=== PATIENT | male | born 1965 | race Caucasian/White ===

== ENCOUNTER → 2019-10-13 12:32 | Outpatient (BNVA) | payer MEDICAID, SELFPAY | PROVIDERS: Family Provider Nurse Practitioner; PCP Nurse Practitioner; Visit Provider Nurse Practitioner Psychiatric/Mental Health | DX: F31.12 Bipolar disorder, current episode manic without psychotic features, moderate (principal); F43.12 Post-traumatic stress disorder, chronic; F41.1 Generalized anxiety disorder; F60.81 Narcissistic personality disorder | CPT/HCPCS: 99213 ==

== ENCOUNTER → 2019-12-10 08:22 | Outpatient (BNVA) | payer MEDICAID, SELFPAY | PROVIDERS: Family Provider Nurse Practitioner; PCP Nurse Practitioner; Visit Provider Nurse Practitioner Psychiatric/Mental Health | DX: F31.12 Bipolar disorder, current episode manic without psychotic features, moderate (principal); F43.12 Post-traumatic stress disorder, chronic; F41.1 Generalized anxiety disorder; F60.81 Narcissistic personality disorder | CPT/HCPCS: 99213 ==

== ENCOUNTER → 2020-01-07 08:30 | Outpatient (BNVA) | payer MEDICAID, SELFPAY | PROVIDERS: Family Provider Nurse Practitioner; Visit Provider Nurse Practitioner Psychiatric/Mental Health | DX: F31.12 Bipolar disorder, current episode manic without psychotic features, moderate (principal); F43.12 Post-traumatic stress disorder, chronic; F41.1 Generalized anxiety disorder; F60.81 Narcissistic personality disorder | CPT/HCPCS: 99214 ==

== ENCOUNTER → 2020-02-05 08:04 | Outpatient (BNVA) | payer MEDICAID, SELFPAY | PROVIDERS: Family Provider Nurse Practitioner; Visit Provider Nurse Practitioner Psychiatric/Mental Health | DX: F31.12 Bipolar disorder, current episode manic without psychotic features, moderate (principal); F43.12 Post-traumatic stress disorder, chronic; F41.1 Generalized anxiety disorder; F60.81 Narcissistic personality disorder | CPT/HCPCS: 99214 ==

== ENCOUNTER → 2020-03-11 07:46 | Outpatient (BNVA) | payer MEDICAID, SELFPAY | PROVIDERS: Family Provider Nurse Practitioner; Visit Provider Nurse Practitioner Psychiatric/Mental Health | DX: F31.12 Bipolar disorder, current episode manic without psychotic features, moderate (principal); F43.12 Post-traumatic stress disorder, chronic; F41.1 Generalized anxiety disorder; F60.81 Narcissistic personality disorder | CPT/HCPCS: 99214 ==

== ENCOUNTER → 2020-04-13 09:53 | Outpatient (BNVA) | payer MEDICAID, SELFPAY | PROVIDERS: Family Provider Nurse Practitioner; Visit Provider Nurse Practitioner Psychiatric/Mental Health | DX: F31.12 Bipolar disorder, current episode manic without psychotic features, moderate (principal); F43.12 Post-traumatic stress disorder, chronic; F41.1 Generalized anxiety disorder; F60.81 Narcissistic personality disorder | CPT/HCPCS: 99214 ==

== ENCOUNTER → 2020-05-13 08:20 | Outpatient (BNVA) | payer MEDICAID, SELFPAY | PROVIDERS: Family Provider Nurse Practitioner; Visit Provider Nurse Practitioner Psychiatric/Mental Health | DX: F31.12 Bipolar disorder, current episode manic without psychotic features, moderate (principal); F43.12 Post-traumatic stress disorder, chronic; F41.1 Generalized anxiety disorder; F60.81 Narcissistic personality disorder | CPT/HCPCS: 99214 ==

== ENCOUNTER → 2020-06-10 08:19 | Outpatient (BNVA) | payer MEDICAID, SELFPAY | PROVIDERS: Family Provider Nurse Practitioner; Visit Provider Nurse Practitioner Psychiatric/Mental Health | DX: F31.12 Bipolar disorder, current episode manic without psychotic features, moderate (principal); F43.12 Post-traumatic stress disorder, chronic; F41.1 Generalized anxiety disorder; F60.81 Narcissistic personality disorder | CPT/HCPCS: 99213 ==

== ENCOUNTER → 2020-07-15 07:57 | Outpatient (BNVA) | payer MEDICAID, SELFPAY | PROVIDERS: Family Provider Nurse Practitioner; Visit Provider Nurse Practitioner Psychiatric/Mental Health | DX: F31.12 Bipolar disorder, current episode manic without psychotic features, moderate (principal); F43.12 Post-traumatic stress disorder, chronic; F41.1 Generalized anxiety disorder; F60.81 Narcissistic personality disorder | CPT/HCPCS: 99213 ==

== ENCOUNTER → 2020-08-09 09:27 | Outpatient (BNVA) | payer MEDICAID, SELFPAY | PROVIDERS: Family Provider Nurse Practitioner; Visit Provider Nurse Practitioner Psychiatric/Mental Health | DX: F31.12 Bipolar disorder, current episode manic without psychotic features, moderate (principal); F43.12 Post-traumatic stress disorder, chronic; F41.1 Generalized anxiety disorder; F60.81 Narcissistic personality disorder | CPT/HCPCS: 99213 ==

== ENCOUNTER → 2020-09-20 08:43 | Outpatient (BNVA) | payer MEDICAID, SELFPAY | PROVIDERS: Family Provider Nurse Practitioner; Visit Provider Nurse Practitioner Psychiatric/Mental Health | DX: F31.12 Bipolar disorder, current episode manic without psychotic features, moderate (principal); F43.12 Post-traumatic stress disorder, chronic; F41.1 Generalized anxiety disorder; F60.81 Narcissistic personality disorder | CPT/HCPCS: 99214 ==

== ENCOUNTER → 2020-10-18 08:00 | Outpatient (BNVA) | payer MEDICAID, SELFPAY | PROVIDERS: Family Provider Nurse Practitioner; Visit Provider Nurse Practitioner Psychiatric/Mental Health | DX: F31.12 Bipolar disorder, current episode manic without psychotic features, moderate (principal); F43.12 Post-traumatic stress disorder, chronic; F41.1 Generalized anxiety disorder; F60.81 Narcissistic personality disorder | CPT/HCPCS: 99214 ==

== ENCOUNTER → 2020-11-23 08:06 | Outpatient (BNVA) | payer MEDICAID, SELFPAY | PROVIDERS: Family Provider Nurse Practitioner; Visit Provider Nurse Practitioner Psychiatric/Mental Health | DX: F31.12 Bipolar disorder, current episode manic without psychotic features, moderate (principal); F43.12 Post-traumatic stress disorder, chronic; F41.1 Generalized anxiety disorder; F60.81 Narcissistic personality disorder | CPT/HCPCS: 99214 ==

== ENCOUNTER → 2020-12-19 08:35 | Outpatient (BNVA) | payer MEDICAID, SELFPAY | PROVIDERS: Family Provider Nurse Practitioner; Visit Provider Nurse Practitioner Psychiatric/Mental Health | DX: F31.12 Bipolar disorder, current episode manic without psychotic features, moderate (principal); F43.12 Post-traumatic stress disorder, chronic; F41.1 Generalized anxiety disorder; F60.81 Narcissistic personality disorder | CPT/HCPCS: 99214 ==

== ENCOUNTER → 2021-01-17 08:34 | Outpatient (BNVA) | payer MEDICAID, SELFPAY | PROVIDERS: Family Provider Nurse Practitioner; Visit Provider Nurse Practitioner Psychiatric/Mental Health | DX: F31.12 Bipolar disorder, current episode manic without psychotic features, moderate (principal); F43.12 Post-traumatic stress disorder, chronic; F41.1 Generalized anxiety disorder; F60.81 Narcissistic personality disorder | CPT/HCPCS: 99214 ==

== ENCOUNTER → 2021-02-14 08:21 | Outpatient (BNVA) | payer MEDICAID, SELFPAY | PROVIDERS: Family Provider Nurse Practitioner; Visit Provider Nurse Practitioner Psychiatric/Mental Health | DX: F31.12 Bipolar disorder, current episode manic without psychotic features, moderate (principal); F43.12 Post-traumatic stress disorder, chronic; F41.1 Generalized anxiety disorder; F60.81 Narcissistic personality disorder | CPT/HCPCS: 99214 ==

== ENCOUNTER 2021-02-21 10:29 | Inpatient (IN) | payer MEDICAID, SELFPAY ==
[2021-02-21] VITALS (17 sets, daily range): BP systolic 91–132; BP diastolic 54–83; PULSE 49–75; RESP 13–26; TEMP 36.5–36.8; O2SAT 89–95; BMI 26.6
--- NOTE | 2021-02-21 10:36 | ECG_ITS ---
[facility] Test Date: 2021-02-21 Pat Name: Hero Gardner Department: Room: Gender: Male First Aid Attendant: : 1965 Requested By: Jackie Monteiro Order Number: [id number] Cristina MD: Mily Sandhu M.D. Measurements Intervals [place] Rate: 65 P: 42 DE: 149 QRS: -10 QRSD: 99 T: 11 QT: 427 QTc: 445 Interpretive Statements SINUS RHYTHM INCOMPLETE RIGHT BUNDLE BRANCH BLOCK [90+ ms QRS DURATION, TERMINAL R IN V1/V2, 40+ ms S IN I/aVL/V4/V5/V6] PROBABLE SEPTAL MYOCARDIAL INFARCTION [35 ms Q WAVE IN V1/V2], PROBABLY OLD No previous ECG available for comparison Electronically Signed On 02-22-2021 0:23:38 CDT by Mily Sandhu M.D. [email or web address]
--- NOTE | 2021-02-21 10:36 | XRR_ITS ---
PROCEDURE INFORMATION: Exam: XR Chest Exam date and time: 02/21/2021 10:36 AM Age: 55 years old Clinical indication: Pain; Shortness of breath; Angina pectoris; Prior surgery; Surgery type: Open heart; Additional info: Chest pain TECHNIQUE: Imaging protocol: XR of the chest. Views: 1 view. COMPARISON: CT chest con [id number] 11/08/2018 2:38 PM FINDINGS: Lungs: Unremarkable. No consolidation. Pleural spaces: Unremarkable. No pleural effusion. No pneumothorax. Heart/Mediastinum: The patient has undergone coronary bypass surgery. The heart is not enlarged. Bones/joints: Unremarkable. XR/XR chest 1V portable [id number] IMPRESSION: No acute cardiopulmonary abnormality.
[2021-02-21 11:04] LABS: Basophils # 0.1 10^3/uL (0.0-0.1); Basophils % 0.7 %; Eosinophils # 0.7 10^3/uL (0.0-0.8); Eosinophils % 6.5 %; Hematocrit 46.5 % (42.0-52.0); Lymphocytes # 2.9 10^3/uL (0.8-4.8); Lymphocytes % 28.4 %; Mean Corpuscular HGB Conc 32.3 g/dL (30.0-36.0); Mean Corpuscular Hemoglobin 28.2 pg (28.0-34.0); Mean Corpuscular Volume 87.6 fL (80-94); Mean Platelet Volume 9.9 fL (7.4-10.4); Monocytes # 0.7 10^3/uL (0.2-0.9); Monocytes % 7.1 %; Neutrophils # 5.82 10^3/uL (1.8-7.7); Nucleated Red Blood Cells % 0 %; Platelet Count 327 10^3/cmm (130-400); Red Blood Count 5.31 10^6/uL (4.1-5.3); Red Cell Distribution Width 12.8 % (12.1-15.1); White Blood Count 10.2 10^3/uL (4.0-10.0)
--- NOTE | 2021-02-21 11:33 | W.ED.CHESTPA ---
HPI - Chest Pain General: Chief Complaint: Chest Pain Stated Complaint: chest pain Time Seen by Provider: 02/21/21 10:52 History of Present Illness: HPI narrative: 55-year-old male presents emergency room complaining of worsening chest pain with radiation down his left arm and up into his neck. It is associated with exertion in fact he intentionally gave himself a stress test at home by going up and down the stairs which elicited the pain and then it resolved after 5 to 10 minutes. He is not on any antiplatelet therapy. He has a known history of coronary disease with previous angiography with stenting subsequent in-stent stenosis and coronary artery bypass. He has not had any kind of evaluation approximately last 5 years. He is not on any statin therapy. He is is a remote history of smoking he is not diabetic. 1 aspect of his history is a little bit more perplexing in that he reports at times he will get the chest pain at rest he will start to do squats and then push-ups with the idea that he is exercising the lower and then the upper portion of his heart after he ceases the exercise and 5 to 10 minutes the chest pain will go away. His episodes recently have been increasing in intensity and frequency. 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 Onset (ago): day(s) (3) Timing of current episode: episodic and increasing Prior episodes: Yes Onset: during rest and during exertion Pain location: left chest Pain radiation: left arm and neck Severity: moderate Relieving factors: rest Exacerbating factors: exertion Associated symptoms: Reports dyspnea; Deny abdominal pain, diaphoresis, fever(s), leg edema, nausea, palpitations, sense of impending doom, syncope or vomiting Treatment prior to arrival: none Review of Systems Const: Denies: fever(s) or diaphoresis ENMT: Denies: throat pain, ear or mastoid pain, nasal discharge or nasal congestion Card: Denies: palpitations or syncope Resp: Reports: dyspnea GI: Denies: abdominal pain, nausea or vomiting : Denies: flank pain, dysuria, urinary frequency or urinary urgency Skin/Breast: Denies: rash or pruritus PFS ED PFSH: Medical History Bipolar I disorder, moderate, current or most recent episode manic, with anxious distress CAD (coronary artery disease) Chronic post-traumatic stress disorder Generalized anxiety disorder Surgical History S/P CABG (coronary artery bypass graft) Social History Smoking and tobacco status: former smoker Physical Exam Const: COMMON NORMALS: no acute distress GENERAL APPEARANCE: cooperative and comfortable ORIENTATION/CONSCIOUSNESS: Yes awake, Yes oriented to person, Yes oriented to place and Yes oriented to time HENMT: COMMON NORMALS: normocephalic, atraumatic, hearing grossly normal bilaterally and external ears normal HEAD & SCALP: normocephalic and atraumatic EXTERNAL EAR: Yes external ears normal Neck/C-Spine: COMMON NORMALS: no JVD Resp: COMMON NORMALS: normal respiratory effort, No retractions, No use of accessory muscles and clear to auscultation bilaterally AUSCULTATION: clear to auscultation bilaterally Cardio: COMMON NORMALS: no JVD, regular rate, regular rhythm and No murmurs present (Cardio) RATE: regular rate RHYTHM: regular rhythm GI: COMMON NORMALS: Soft to palpation and No hepatosplenomegaly present AUSCULTATION: Yes normoactive bowel sounds PALPATION: Yes Soft to palpation, No Tenderness to palpation present (GI), No Guarding due to palpation present (GI) and Yes No hepatosplenomegaly present Extremity: COMMON NORMALS: normal to inspection, capillary refill normal, no clubbing, cyanosis or edema, no calf tenderness and no pedal edema Neuro: SENSORIUM/ORIENTATION: Yes oriented to person, Yes oriented to place and Yes oriented to time Skin: COMMON NORMALS: no rashes or lesions noted GENERAL SKIN EXAM: no rashes or lesions noted Course Vital Signs: Vital signs: Vital Signs Temperature 98.4 F 02/23/21 13:58 Pulse Rate 67 02/23/21 13:58 Respiratory Rate 17 02/23/21 13:58 Blood Pressure 123/81 02/23/21 13:58 Pulse Oximetry 91 02/23/21 13:58 MDM - Chest Pain MDM Narrative: Medical decision making narrative: Delta troponin elevated we will go ahead and admit discussed with hospitalist and consult cardiology as needed. Orders are written Lab Data: Labs: Lab Results 02/21/21 02/21/21 02/21/21 Range/Units 10:55 10:55 10:55 WBC 10.2 H (4.0-10.0) 10^3/ uL RBC 5.31 H (4.1-5.3) 10^6/u L Hgb 15.0 (11.7-16.6) g/dL Hct 46.5 (42.0-52.0) % MCV 87.6 (80-94) fL MCH 28.2 (28.0-34.0) pg MCHC 32.3 (30.0-36.0) g/dL RDW 12.8 (12.1-15.1) % Plt Count 327 (130-400) 10^3/c mm MPV 9.9 (7.4-10.4) fL Neut % (Auto) 57.0 % Lymph % (Auto) 28.4 % [place] % (Auto) 7.1 % Eos % (Auto) 6.5 % Baso % (Auto) 0.7 % Neut # (Auto) 5.82 (1.8-7.7) 10^3/u L Lymph # (Auto) 2.9 (0.8-4.8) 10^3/u L [place] # (Auto) 0.7 (0.2-0.9) 10^3/u L Eos # (Auto) 0.7 (0.0-0.8) 10^3/u L Baso # (Auto) 0.1 (0.0-0.1) 10^3/u L Nucleated RBC % (a uto) 0 % Nucleated RBCs # 0.0 /100WBC PT (12.1-14.9) SECO NDS INR (0.8-1.2) APTT (23.9-36.7) SECO NDS Sodium 138 (136-145) mmol/L Potassium 4.0 (3.5-5.1) mmol/L Chloride 101 (98-107) mmol/L Carbon Dioxide 27 (22-29) mmol/L Anion Gap 14.0 (5-19) BUN 13 (6-20) mg/dL Creatinine 1.1 (0.7-1.2) mg/dL GFR Calculation 69.5 L (90-130) mL/min Glucose 82 (65-115) mg/dL Estimat Average Gl ucose Hemoglobin A1c (4.0-6.0) % Calculated Osmolal ity 285 (285-295) mOsm/k g Calcium 9.3 (8.5-10.5) mg/dL Phosphorus (2.5-4.5) mg/dL Magnesium (1.7-2.3) mg/dL Total Bilirubin 0.4 (0.15-1.2) mg/dL AST 13 (0-40) U/L ALT 10 (0-41) U/L Alkaline Phosphata se 74 (40-130) IU/L Troponin T Baselin e 153 H* (0-15) ng/L Troponin T 120 Min [place] (0-15) ng/L Delta Troponin T (0-10) ABS# Troponin T Hi Sens 6Hr (0-15) ng/L Troponin T Hi Sens 6Hr Delta (0-12) ng/L NT-Pro-B Natriuret Pep (0-125) pg/mL Total Protein 6.7 (6.6-8.7) g/dL Albumin 4.3 (3.5-5.2) g/dL Globulin 2.4 (1.3-4.6) g/dL Triglycerides (0-150) mg/dL Cholesterol (0-200) mg/dL LDL Cholesterol, C alc (50-129) mg/dL HDL Cholesterol (60-100) mg/dL LDL/HDL Ratio (0.00-3.22) RATI O Cholesterol/HDL Ra rayray (1.0-5.00) mg/dL TSH (0.27-4.20) uIU/ mL SARS-CoV-2 Ag (Rap id) (Negative) 02/21/21 02/21/21 02/21/21 Range/Units 10:55 10:55 10:55 WBC (4.0-10.0) 10^3/ uL RBC (4.1-5.3) 10^6/u L Hgb (11.7-16.6) g/dL Hct (42.0-52.0) % MCV (80-94) fL MCH (28.0-34.0) pg MCHC (30.0-36.0) g/dL RDW (12.1-15.1) % Plt Count (130-400) 10^3/c mm MPV (7.4-10.4) fL Neut % (Auto) % Lymph % (Auto) % [place] % (Auto) % Eos % (Auto) % Baso % (Auto) % Neut # (Auto) (1.8-7.7) 10^3/u L Lymph # (Auto) (0.8-4.8) 10^3/u L [place] # (Auto) (0.2-0.9) 10^3/u L Eos # (Auto) (0.0-0.8) 10^3/u L Baso # (Auto) (0.0-0.1) 10^3/u L Nucleated RBC % (a uto) % Nucleated RBCs # /100WBC PT (12.1-14.9) SECO NDS INR (0.8-1.2) APTT (23.9-36.7) SECO NDS Sodium (136-145) mmol/L Potassium (3.5-5.1) mmol/L Chloride (98-107) mmol/L Carbon Dioxide (22-29) mmol/L Anion Gap (5-19) BUN (6-20) mg/dL Creatinine (0.7-1.2) mg/dL GFR Calculation (90-130) mL/min Glucose (65-115) mg/dL Estimat Average Gl ucose 108 Hemoglobin A1c 5.4 (4.0-6.0) % Calculated Osmolal ity (285-295) mOsm/k g Calcium (8.5-10.5) mg/dL Phosphorus 2.4 L (2.5-4.5) mg/dL Magnesium 2.2 (1.7-2.3) mg/dL Total Bilirubin (0.15-1.2) mg/dL AST (0-40) U/L ALT (0-41) U/L Alkaline Phosphata se (40-130) IU/L Troponin T Baselin e (0-15) ng/L Troponin T 120 Min [place] (0-15) ng/L Delta Troponin T (0-10) ABS# Troponin T Hi Sens 6Hr (0-15) ng/L Troponin T Hi Sens 6Hr Delta (0-12) ng/L NT-Pro-B Natriuret Pep 467 H (0-125) pg/mL Total Protein (6.6-8.7) g/dL Albumin (3.5-5.2) g/dL Globulin (1.3-4.6) g/dL Triglycerides 220 H (0-150) mg/dL Cholesterol 256 H (0-200) mg/dL LDL Cholesterol, C alc 181 H (50-129) mg/dL HDL Cholesterol 31 L (60-100) mg/dL LDL/HDL Ratio 5.84 H (0.00-3.22) RATI O Cholesterol/HDL Ra rayray 8.26 H (1.0-5.00) mg/dL TSH 2.92 (0.27-4.20) uIU/ mL SARS-CoV-2 Ag (Rap id) (Negative) 02/21/21 02/21/21 02/21/21 Range/Units 12:35 18:20 20:20 WBC (4.0-10.0) 10^3/ uL RBC (4.1-5.3) 10^6/u L Hgb (11.7-16.6) g/dL Hct (42.0-52.0) % MCV (80-94) fL MCH (28.0-34.0) pg MCHC (30.0-36.0) g/dL RDW (12.1-15.1) % Plt Count (130-400) 10^3/c mm MPV (7.4-10.4) fL Neut % (Auto) % Lymph % (Auto) % [place] % (Auto) % Eos % (Auto) % Baso % (Auto) % Neut # (Auto) (1.8-7.7) 10^3/u L Lymph # (Auto) (0.8-4.8) 10^3/u L [place] # (Auto) (0.2-0.9) 10^3/u L Eos # (Auto) (0.0-0.8) 10^3/u L Baso # (Auto) (0.0-0.1) 10^3/u L Nucleated RBC % (a uto) % Nucleated RBCs # /100WBC PT (12.1-14.9) SECO NDS INR (0.8-1.2) APTT (23.9-36.7) SECO NDS Sodium (136-145) mmol/L Potassium (3.5-5.1) mmol/L Chloride (98-107) mmol/L Carbon Dioxide (22-29) mmol/L Anion Gap (5-19) BUN (6-20) mg/dL Creatinine (0.7-1.2) mg/dL GFR Calculation (90-130) mL/min Glucose (65-115) mg/dL Estimat Average Gl ucose Hemoglobin A1c (4.0-6.0) % Calculated Osmolal ity (285-295) mOsm/k g Calcium (8.5-10.5) mg/dL Phosphorus (2.5-4.5) mg/dL Magnesium (1.7-2.3) mg/dL Total Bilirubin (0.15-1.2) mg/dL AST (0-40) U/L ALT (0-41) U/L Alkaline Phosphata se (40-130) IU/L Troponin T Baselin e (0-15) ng/L Troponin T 120 Min [place] 164.2 H (0-15) ng/L Delta Troponin T 11.2 H* (0-10) ABS# Troponin T Hi Sens 6Hr 142.8 H (0-15) ng/L Troponin T Hi Sens 6Hr Delta -21.4 L (0-12) ng/L NT-Pro-B Natriuret Pep (0-125) pg/mL Total Protein (6.6-8.7) g/dL Albumin (3.5-5.2) g/dL Globulin (1.3-4.6) g/dL Triglycerides (0-150) mg/dL Cholesterol (0-200) mg/dL LDL Cholesterol, C alc (50-129) mg/dL HDL Cholesterol (60-100) mg/dL LDL/HDL Ratio (0.00-3.22) RATI O Cholesterol/HDL Ra rayray (1.0-5.00) mg/dL TSH (0.27-4.20) uIU/ mL SARS-CoV-2 Ag (Rap id) Negative (Negative) 02/22/21 02/22/21 02/22/21 Range/Units 03:20 03:20 03:20 WBC 7.3 (4.0-10.0) 10^3/ uL RBC 5.03 (4.1-5.3) 10^6/u L Hgb 14.0 (11.7-16.6) g/dL Hct 43.7 (42.0-52.0) % MCV 86.9 (80-94) fL MCH 27.8 L (28.0-34.0) pg MCHC 32.0 (30.0-36.0) g/dL RDW 13.0 (12.1-15.1) % Plt Count 321 (130-400) 10^3/c mm MPV 10.4 (7.4-10.4) fL Neut % (Auto) 53.6 % Lymph % (Auto) 28.6 % [place] % (Auto) 8.3 % Eos % (Auto) 8.7 % Baso % (Auto) 0.5 % Neut # (Auto) 3.93 (1.8-7.7) 10^3/u L Lymph # (Auto) 2.1 (0.8-4.8) 10^3/u L [place] # (Auto) 0.6 (0.2-0.9) 10^3/u L Eos # (Auto) 0.6 (0.0-0.8) 10^3/u L Baso # (Auto) 0.0 (0.0-0.1) 10^3/u L Nucleated RBC % (a uto) 0 % Nucleated RBCs # 0.0 /100WBC PT (12.1-14.9) SECO NDS INR (0.8-1.2) APTT (23.9-36.7) SECO NDS Sodium 142 (136-145) mmol/L Potassium 3.9 (3.5-5.1) mmol/L Chloride 107 (98-107) mmol/L Carbon Dioxide 26 (22-29) mmol/L Anion Gap 12.9 (5-19) BUN 14 (6-20) mg/dL Creatinine 1.1 (0.7-1.2) mg/dL GFR Calculation 69.5 L (90-130) mL/min Glucose 78 (65-115) mg/dL Estimat Average Gl ucose Hemoglobin A1c (4.0-6.0) % Calculated Osmolal ity 293 (285-295) mOsm/k g Calcium 8.8 (8.5-10.5) mg/dL Phosphorus (2.5-4.5) mg/dL Magnesium 2.2 (1.7-2.3) mg/dL Total Bilirubin (0.15-1.2) mg/dL AST (0-40) U/L ALT (0-41) U/L Alkaline Phosphata se (40-130) IU/L Troponin T Baselin e (0-15) ng/L Troponin T 120 Min [place] (0-15) ng/L Delta Troponin T (0-10) ABS# Troponin T Hi Sens 6Hr (0-15) ng/L Troponin T Hi Sens 6Hr Delta (0-12) ng/L NT-Pro-B Natriuret Pep (0-125) pg/mL Total Protein (6.6-8.7) g/dL Albumin (3.5-5.2) g/dL Globulin (1.3-4.6) g/dL Triglycerides (0-150) mg/dL Cholesterol (0-200) mg/dL LDL Cholesterol, C alc (50-129) mg/dL HDL Cholesterol (60-100) mg/dL LDL/HDL Ratio (0.00-3.22) RATI O Cholesterol/HDL Ra rayray (1.0-5.00) mg/dL TSH (0.27-4.20) uIU/ mL SARS-CoV-2 Ag (Rap id) (Negative) 02/22/21 02/22/21 02/22/21 Range/Units 03:20 12:19 15:15 WBC (4.0-10.0) 10^3/ uL RBC (4.1-5.3) 10^6/u L Hgb (11.7-16.6) g/dL Hct (42.0-52.0) % MCV (80-94) fL MCH (28.0-34.0) pg MCHC (30.0-36.0) g/dL RDW (12.1-15.1) % Plt Count (130-400) 10^3/c mm MPV (7.4-10.4) fL Neut % (Auto) % Lymph % (Auto) % [place] % (Auto) % Eos % (Auto) % Baso % (Auto) % Neut # (Auto) (1.8-7.7) 10^3/u L Lymph # (Auto) (0.8-4.8) 10^3/u L [place] # (Auto) (0.2-0.9) 10^3/u L Eos # (Auto) (0.0-0.8) 10^3/u L Baso # (Auto) (0.0-0.1) 10^3/u L Nucleated RBC % (a uto) % Nucleated RBCs # /100WBC PT 13.60 (12.1-14.9) SECO NDS INR 1.01 (0.8-1.2) APTT 211.6 H* 42.7 H D (23.9-36.7) SECO NDS Sodium (136-145) mmol/L Potassium (3.5-5.1) mmol/L Chloride (98-107) mmol/L Carbon Dioxide (22-29) mmol/L Anion Gap (5-19) BUN (6-20) mg/dL Creatinine (0.7-1.2) mg/dL GFR Calculation (90-130) mL/min Glucose (65-115) mg/dL Estimat Average Gl ucose Hemoglobin A1c (4.0-6.0) % Calculated Osmolal ity (285-295) mOsm/k g Calcium (8.5-10.5) mg/dL Phosphorus (2.5-4.5) mg/dL Magnesium (1.7-2.3) mg/dL Total Bilirubin (0.15-1.2) mg/dL AST (0-40) U/L ALT (0-41) U/L Alkaline Phosphata se (40-130) IU/L Troponin T Baselin e (0-15) ng/L Troponin T 120 Min [place] (0-15) ng/L Delta Troponin T (0-10) ABS# Troponin T Hi Sens 6Hr (0-15) ng/L Troponin T Hi Sens 6Hr Delta (0-12) ng/L NT-Pro-B Natriuret Pep (0-125) pg/mL Total Protein (6.6-8.7) g/dL Albumin (3.5-5.2) g/dL Globulin (1.3-4.6) g/dL Triglycerides (0-150) mg/dL Cholesterol (0-200) mg/dL LDL Cholesterol, C alc (50-129) mg/dL HDL Cholesterol (60-100) mg/dL LDL/HDL Ratio (0.00-3.22) RATI O Cholesterol/HDL Ra rayray (1.0-5.00) mg/dL TSH (0.27-4.20) uIU/ mL SARS-CoV-2 Ag (Rap id) (Negative) Discharge Plan Discharge Patient Disposition: Admitted As Inpatient Admit Provider: Domingo Beauchamp Clinical Impression: Chest pain, Elevated troponin Condition: Stable Coding Level of Care Code ED Adult Education Professional for Chg Fwd Exam Comprehensive
[2021-02-21 11:41] LABS: Alanine Aminotransferase 10 U/L (0-41); Albumin Level 4.3 g/dL (3.5-5.2); Alkaline Phosphatase 74 IU/L (40-130); Aspartate Amino Transferase 13 U/L (0-40); Blood Urea Nitrogen 13 mg/dL (6-20); Calcium 9.3 mg/dL (8.5-10.5); Carbon Dioxide 27 mmol/L (22-29); Chloride 101 mmol/L (98-107); Globulin 2.4 g/dL (1.3-4.6); Glomerular Filtration Rate 69.5 mL/min (90-130); Glucose 82 mg/dL (65-115); Osmolality Calculated 285 mOsm/kg (285-295); Sodium 138 mmol/L (136-145); Total Bilirubin 0.4 mg/dL (0.15-1.2); Total Protein 6.7 g/dL (6.6-8.7); Troponin(5th) Baseline 153 ng/L (0-15)
[2021-02-21] MEDS: aspirin 81 mg Chew Tablet 324 MG PO (11:49)
--- NOTE | 2021-02-21 12:36 | ECG_ITS ---
[facility] Test Date: 2021-02-21 Pat Name: Hero Gardner Department: Room: Gender: Male Cafe Aide: : 1965 Requested By: Jackie Monteiro Order Number: [id number] Cristina MD: Mily Sandhu M.D. Measurements Intervals [place] Rate: 55 P: 32 [place]: 153 QRS: -11 QRSD: 105 T: 17 QT: 445 QTc: 426 Interpretive Statements SINUS BRADYCARDIA LOW QRS VOLTAGE IN PRECORDIAL LEADS [QRS DEFLECTION < 1.0 mV IN CHEST LEADS] INCOMPLETE RIGHT BUNDLE BRANCH BLOCK [90+ ms QRS DURATION, TERMINAL R IN V1/V2, 40+ ms S IN I/aVL/V4/V5/V6] PROBABLE SEPTAL MYOCARDIAL INFARCTION [35 ms Q WAVE IN V1/V2], PROBABLY OLD Compared to ECG 02/21/2021 10:54:49 Low QRS voltage now present Sinus rhythm no longer present Myocardial infarct finding still present Electronically Signed On 02-22-2021 0:50:59 CDT by Mily Sandhu M.D. [id number]
[2021-02-21] MEDS: nitroglycerin 1 gm/inch oint Pkt 0.5 INCH TOPICAL (12:53)
[2021-02-21] MEDS: enoxaparin 80 mg/0.8 mL Syringe SUBCUT (12:54)
--- NOTE | 2021-02-21 13:07 | PM.CONSULT ---
Providers/Reason For Consult Consulting Physician/Specialty*: Dr. Garza, cardiology Reason for Consult*: Non-ST elevation IA Requesting Physician: Dr. Jeff History of Present Illness History of Present Illness Hero Gardner is a 55 year old male with past medical history of CAD s/p several LAD stents and CABG x2 (per patient) 10 years back (details not available) not on aspirin or statin at home presented with chief complaints of chest discomfort. There are not much records available in our system but seems like he had a stress test in May 2011 that showed LAD territory ischemia and he underwent coronary angiogram and stent placement by Dr. Shen. He stopped taking all his medications and given recurrent chest discomfort he underwent repeat coronary angiogram in July 2011 and was found to have left dominant circulation with ostial LAD occlusion. He was evaluated by Dr. Reece and then was sent to an outside hospital for CABG from what I can gather. He presented with complains of chest pain on and off for last 3 days. He is not a great historian. At the time of evaluation, he denies any chest discomfort. Chest discomfort pressure like retrosternal with radiation to upper chest with intermittent radiation to left arm mostly with exertion lasting for several minutes to hours. Chest pain similar to what he had prior to CABG Review of Systems General: Reports: 10 or more systems reviewed and unremarkable except in HPI and below Const: Denies: fever(s) or diaphoresis ENMT: Denies: throat pain, ear or mastoid pain, nasal discharge or nasal congestion Card: Reports: chest pain and dyspnea on exertion; Denies: palpitations, edema, swelling of feet/ankles, syncope or orthopnea Resp: Reports: dyspnea GI: Denies: abdominal pain, nausea, vomiting, hematochezia or melena : Denies: flank pain, dysuria, urinary frequency, urinary urgency or hematuria Musc: Denies: extremity swelling Skin/Breast: Denies: rash or pruritus Neuro: Denies: headache(s) Psych: Denies: anxiety or depression Juanito/Lymph: Denies: easy bruising or easy bleeding Meds/Allergies Home Medications and Allergies Home Medications Medication Instructions Recorded Confirmed Last Taken Type diphenhydramine HCl 25 mg tablet 25 mg PO BEDTIME PRN tab 06/09/20 02/21/21 Unknown History bupropion HCl 150 mg 24 hr tablet, 150 mg PO QAM #90 tab 11/23/20 02/21/21 02/21/21 Rx extended release buspirone 15 mg tablet 15 mg PO BID #180 tab 11/23/20 02/21/21 02/21/21 Rx lamotrigine 150 mg tablet 150 mg PO QAM #90 tab 11/23/20 02/21/21 02/21/21 Rx clonazepam 1 mg tablet 1 mg PO TID #90 tab 02/14/21 02/21/21 02/21/21 Rx Allergies Allergy/AdvReac Type Severity Reaction Status Date / Time No Known Allergies Allergy Verified 02/21/21 09:23 PFSH Acute PFSH: Medical History (Updated 02/21/21 @ 15:09 by Domingo Beauchamp MD) Bipolar I disorder, moderate, current or most recent episode manic, with anxious distress CAD (coronary artery disease) Chronic post-traumatic stress disorder Generalized anxiety disorder Surgical History (Updated 02/21/21 @ 13:09 by Gabby Garza MD) S/P CABG (coronary artery bypass graft) Social History Smoking and tobacco status: former smoker Vitals/I&O/Wt Last Vital Signs Temp 97.7 F 02/21/21 10:34 Pulse 56 L 02/21/21 12:50 Resp 15 02/21/21 12:50 BP 111/71 02/21/21 12:50 Pulse Ox 95 02/21/21 12:50 Weight last 48 hrs Weight 170 lb Physical Exam Narrative: EXAM NARRATIVE: GENERAL: Averagely built and averagely nourished in no acute distress HEENT: Extraocular movement intact. Pupils equal round reactive to light. No pallor or icterus. NECK: central trachea, No JVD. No carotid bruit. CARDIOVASCULAR SYSTEM: S1-S2 regular. No S3 or S4 present. No murmur rubs or gallops. RESPIRATORY SYSTEM: Chest clear to auscultation. No wheezes rhonchi or rubs heard. No use of accessory muscles. ABDOMEN: Soft, nontender and nondistended. Normal bowel sounds present. EXTREMITIES: No cyanosis or clubbing. No edema. No signs of chronic venous insufficiency. MEMBER OF TECHNICAL STAFF: Patient is alert oriented ?3. No focal neurological deficits. SKIN: Normal turgor and temperature. No breakdown, rash or nail changes noted. Data Labs: Other Labs: U tox negative Baseline troponin T of 153 Other Data: Attestation for Other Data: I personally reviewed and interpreted the following: Other data: Chest x-ray with no acute cardiopulmonary abnormality. EKG on arrival showed sinus rhythm, normal axis. Possible old septal infarct. Nonspecific ST-T wave changes. No change on subsequent EKG. Cardiac catheterization 24 August 2011 IMPRESSION: A) Coronary artery disease. 1) 100% occlusion, ostial left anterior descending. INDICATIONS: Mr. Gardner is a young man who had a chronic total occlusion of his LAD noted on 06/19/2011. He had been having multiple symptoms including chest discomfort. A stress test was abnormal. We were able to open the left anterior descending and placed several stents in the ostial, proximal and midportion of the vessel. We also performed an angioplasty of the first diagonal branch. The patient has not been taking his medications, most notably the Plavix. He has had chest discomfort since shortly after the procedure. I recommended repeat coronary angiography. DESCRIPTION OF PROCEDURE: Patient was provided informed consent by me. We discussed the risks, the benefits, the alternatives and the complications. Patient was prepped and draped in standard fashion. Lidocaine 1% was used for infiltration. Using the modified Seldinger technique, a 5 Omani sheath was originally placed in the right radial artery. This had to be upgraded to a 6 Omani sheath due to the fact that the catheter would not proceed toward the aortic valve, despite multiple catheters wires and manipulations. This was an extraordinarily difficult catheter placement procedure. We were finally able to get a 6 Omani 3.0 CLS guide in the left main coronary artery. Left coronary angiograms were obtained. This was then exchanged for a 6 Omani JR4 catheter, which was used to perform right coronary angiography. The pigtail was placed into the aorta, but after multiple attempts with the wire, we were simply unable to cross the aortic valve. This was because of the anatomy of the ascending aorta. Eventually, the procedure was abandoned and the left heart catheterization and left ventriculography were not performed. The catheter and sheath were removed and hemostasis obtained with a TR band. There were no untoward reactions or complications and the distal right upper extremity pulses were unchanged. MEDICATIONS: Please see the medication list. HEMODYNAMICS: Please refer to the hemodynamic data sheet. CINEANGIOGRAPHY: Fluoroscopy: Reveals stents in the left anterior descending. These traverse from the ostium to the midportion of the vessel. Left ventriculography: Was not performed. Coronary angiography: Reveals left coronary artery dominance. The left main coronary artery is normal and bifurcates into left anterior descending and circumflex coronary arteries. The left anterior descending is occluded again at its origin. There is absolutely no antegrade flow to the left anterior descending. The circumflex is a large dominant vessel and ends distally as the posterior descending artery after giving off several small marginal branches. The circumflex is normal and provides some collateral flow to the left anterior descending and its branches. The right coronary artery is a small nondominant vessel and is normal. A&P Assessment and plan (1) NSTEMI (non-ST elevated myocardial infarction): received ASA and lovenox in ER. -start on Brilinta 180 mg PO X 1 and then 90 Mg BID -continue statin, ASA, lovenox and NTG -Plan for echo. lipid panel and HbA1C in morning. -Plan for C with Dr. De León in morning Risks and benefits were discussed with the patients. Alternate management options were discussed with the patient as well. Possible complications including but not limited to heart attack, stroke, perforation and were reviewed with the patient as well. Status: Acute (2) CAD (coronary artery disease): H/O CABG Status: Acute Additional A&P Information Hyperlipidemia PTSD Anxiety H/O Non compliance Thank you for allowing me to paticipate in patient's care. Please feel free to call with questions or concerns. Consult Attestations Time Spent in Patient Care: Greater than 35 minutes (>than 50% of time spent in counselling and/or direct pt care on unit). Coding Level of Care Code Acute Veneer Glue Spreader for [facility] Diagnoses NSTEMI (non-ST elevated myocardial infarction) I21.4 CAD (coronary artery disease) I25.10
[2021-02-21 13:11] LABS: Troponin 5 2HR 164.2 ng/L (0-15); Troponin 5 2HR Delta 11.2 ABS# (0-10)
--- NOTE | 2021-02-21 13:45 | USCV_ITS ---
Hero Gardner Age: 55 Gender: M : 1965 Exam Date: 02/21/2021 14:56 Ordering Phys: Lan Jeff DO Technologist: Autumn Reyes Exam Location: [facility] [place] Indication: NSTEMI BP: 118 / 75 HR: 61 Rhythm: Sinus Technical Quality: Adequate MEASUREMENTS (Male / Female) Normal Values 2D ECHO LV Diastolic Diameter PLAX 4.2 cm 4.2 - 5.9 / 3.9 - 5.3 cm LV Systolic Diameter PLAX 2.9 cm IVS Diastolic Thickness 1.4 cm 0.6 - 1.0 / 0.6 - 0.9 cm IVS Systolic Thickness 1.5 cm LVPW Diastolic Thickness 1.3 cm 0.6 - 1.0 / 0.6 - 0.9 cm LVPW Systolic Thickness 1.6 cm RV Chamber Size 3.0 cm LVOT Diameter 2.0 cm LV Ejection Fraction 2D Teich 60.1 % LV Ejection Fraction MOD 2C 54.6 % LV Ejection Fraction 2C AL 55.7 % LA Diameter 3.7 cm LA Width 3.4 cm LA Height 4.8 cm RA Width 3.2 cm RA Height 4.2 cm Aorta at Sinotubular Diameter 3.3 cm M-MODE Aortic Annulus Diameter 3.4 cm LA Ao Ratio MM 1.1 MV E Point Septal Separation 0.5 cm DOPPLER AV Peak Velocity 123.0 cm/s LVOT Peak Velocity 103.0 cm/s AV Area Cont Eq vti 2.7 cm squared AV Area Cont Eq pk 2.7 cm squared MV Area PHT 4.4 cm squared Mitral E to A Ratio 1.4 MV E' Velocity 36.0 cm/s Mitral E to MV E' Ratio 5.9 Mitral E to LV E' Lateral Ratio 5.5 Mitral E to LV E' Septal Ratio 6.3 TR Peak Velocity 199.0 cm/s TR Peak Gradient 15.8 mmHg TV Peak E Velocity 43.0 cm/s Right Atrial Pressure 3.0 mmHg Pulmonary Artery Systolic Pressu 18.8 mmHg PV Peak Velocity 124.0 cm/s RV Acceleration Time 0.1 s RV Ejection Time 0.3 s RV AcT/ET 0.4 FINDINGS Left Ventricle Normal left ventricular size, systolic function and wall thickness, with no regional wall motion abnormalities. Left ventricular ejection fraction is estimated at 55-60 %. There is possible hypokinesis of apical septal wall. Normal diastolic function. Right Ventricle Normal right ventricular size and systolic function. Right ventricular systolic pressure 18.8 mmHg. Right Atrium Normal right atrial size. Right atrial pressure estimated at 3 mmHg. Left Atrium Normal left atrial size. Mitral Valve Structurally normal mitral valve. Chordal Cristiano. No mitral valve stenosis. Trace mitral valve regurgitation. Aortic Valve Structurally normal trileaflet aortic valve. No aortic valve stenosis. Trace to mild aortic valve regurgitation. Tricuspid Valve Structurally normal tricuspid valve. No tricuspid valve stenosis. Trace to mild tricuspid valve regurgitation. Pulmonic Valve Structurally normal pulmonic valve. Trace pulmonary valve regurgitation. Pericardium No pericardial effusion. Aorta Normal size aortic root and proximal ascending aorta. Normal- sized inferior vena cava with normal respiratory variation. CONCLUSIONS 1. This is a technically difficult study. 2. Normal left ventricular size, systolic function and wall thickness, with no regional wall motion abnormalities. Left ventricular ejection fraction is estimated at 55-60 %. There is possible hypokinesis of apical septal wall. Normal diastolic function. 3. Normal pulmonary artery pressure. 4. Normal right ventricular size and systolic function. 5. No prior similar studies to compare. Gabby Garza MD (Electronically Signed) Final Date: 21 February 2021 18:47 S
--- NOTE | 2021-02-21 15:05 | PM.HP ---
Providers/Chief Complaint Admitting Physician: Domingo Beauchamp MD Chief Complaint: chest pain History of Present Illness Hero Gardner is a 55 year old male with a past medical history of CAD, with history of multiple in-stent stenosis, status post CABG double bypass, over 10 years ago, not on aspirin or statin or lisinopril or beta-ben, history of smoking over 20 years ago, who presents to [facility] due to chest pain. Patient tells me for the last 2 weeks he has been having progressively worsening chest pain or shortness of breath. He tells me that the chest pain is typically substernal, pressure-like pain, lasting a few seconds, to a few minutes, radiating down to the left neck, down the left arm, he tells me over the last 2 weeks is becoming progressively more short of breath with minimal exertion, and the chest pain has becoming much more severe and more prolonged. No fevers, no chills, no cough, no known exposure to COVID-19. No recent surgeries. No history of DVT or PE. No history of COPD. No history of asthma. No paroxysmal nocturnal dyspnea no orthopnea. He has not seen a caddymaster in over 5 years. By the time he arrived in the emergency room he was minimally symptomatic, minimal chest pain, received Nitropaste, aspirin, therapeutic Lovenox, his initial troponin was 153, he was also put on 3 L. During my conversation with him, I turned him down to room air, his oxygen saturations was in the 90s, I put him back on 1 L. His 120-minute troponin is 164, delta 11.2, currently asymptomatic Review of Systems Const: Denies: fever(s), chills, fatigue or malaise Eyes: Denies: change in vision or blurry vision ENMT: Denies: nasal congestion Card: Reports: chest pain and dyspnea on exertion; Denies: palpitations, edema or lightheadedness Resp: Denies: dyspnea, productive cough, non-productive cough or wheezing GI: Denies: abdominal pain, nausea, vomiting, hematemesis, diarrhea, constipation, hematochezia or melena : Denies: flank pain, difficulty urinating, dysuria or urinary frequency Musc: Denies: neck pain or back pain Skin/Breast: Denies: rash Neuro: Denies: headache(s), dizziness or vertigo Psych: Denies: anxiety or depression Endo: Denies: polyuria or polydipsia Medications/Allergies Home Medications Medication Instructions Recorded Confirmed Last Taken Type diphenhydramine HCl 25 mg tablet 25 mg PO BEDTIME PRN tab 06/09/20 02/21/21 Unknown History bupropion HCl 150 mg 24 hr tablet, 150 mg PO QAM #90 tab 11/23/20 02/21/21 02/21/21 Rx extended release buspirone 15 mg tablet 15 mg PO BID #180 tab 11/23/20 02/21/21 02/21/21 Rx lamotrigine 150 mg tablet 150 mg PO QAM #90 tab 11/23/20 02/21/21 02/21/21 Rx clonazepam 1 mg tablet 1 mg PO TID #90 tab 02/14/21 02/21/21 02/21/21 Rx Allergies Allergy/AdvReac Type Severity Reaction Status Date / Time No Known Allergies Allergy Verified 02/21/21 09:23 PFSH Acute PFSH: Medical History (Updated 02/21/21 @ 15:09 by Domingo Beauchamp MD) Bipolar I disorder, moderate, current or most recent episode manic, with anxious distress CAD (coronary artery disease) Chronic post-traumatic stress disorder Generalized anxiety disorder Surgical History (Updated 02/21/21 @ 13:09 by Gabby Garza MD) S/P CABG (coronary artery bypass graft) Social History Smoking and tobacco status: former smoker Vitals/I&O/Wt Last Vital Signs Temp 98.3 F 02/21/21 13:42 Pulse 53 L 02/21/21 14:00 Resp 20 H 02/21/21 14:00 BP 118/75 02/21/21 14:00 Pulse Ox 95 02/21/21 14:00 Weight last 48 hrs Weight 77.111 kg Physical Exam Const: COMMON NORMALS: no acute distress and patient oriented x3 GENERAL APPEARANCE: cooperative and comfortable Eye: COMMON NORMALS: Equal, round and reactive pupils present and EOMs intact bilaterally GENERAL EYE: appearance normal, both eyes and all related structures PUPIL: Yes Equal, round and reactive pupils present Neck/C-Spine: COMMON NORMALS: full ROM, no lymphadenopathy and Thyroid normal THYROID: Thyroid normal Lymph: LYMPHATIC: no lymphadenopathy noted Resp: COMMON NORMALS: normal respiratory effort, No retractions, No use of accessory muscles and clear to auscultation bilaterally AUSCULTATION: clear to auscultation bilaterally Cardio: COMMON NORMALS: no JVD, regular rate, regular rhythm, S1 normal heart sound present, S2 normal heart sound present, No gallops present (Cardio), No clicks present (Cardio) and No murmurs present (Cardio) RATE: regular rate RHYTHM: regular rhythm HEART SOUNDS: S1 normal heart sound present and S2 normal heart sound present GI: COMMON NORMALS: Normal to inspection, nondistended, normoactive bowel sounds present, Soft to palpation, non-tender and No hepatosplenomegaly present PALPATION: Yes Soft to palpation and Yes No hepatosplenomegaly present Extremity: COMMON NORMALS: normal to inspection, full ROM and no pedal edema Neuro: COMMON NORMALS: patient oriented x3, CN's II-XII intact bilaterally, moves all extremities and no focal motor deficits Psych: COMMON NORMALS: mental status grossly normal, Normal thought process present and cooperative THOUGHT PROCESS: Normal thought process present Skin: NARRATIVE SKIN EXAM: Sternal scar Data : 02/21/21 10:55 02/21/21 10:55 A&P Assessment and plan (1) Chest pain: -With history of stenting, status post CABG, history of noncompliance -Baseline troponin I 53, 120-minute 164.2, delta 11.2 -EKG no acute ST-T wave changes -Currently no chest pain Plan: -Admit to cardiac stepdown unit -Monitor for chest pain -Serial troponins, serial EKGs, telemetry monitoring -Continue therapeutic Lovenox -Aspirin, statin, Coreg -Cardiac echocardiogram pending -Hypoxia requiring up to 1 to 2 L, BNP pending, echocardiogram pending, hold off on Lasix -Cardiology on consult -Full code -Lovenox for DVT prophylaxis Status: Acute (2) NSTEMI (non-ST elevated myocardial infarction): Status: Acute (3) CAD (coronary artery disease): Status: Acute (4) Generalized anxiety disorder: Status: Chronic (5) Chronic post-traumatic stress disorder: Status: Chronic (6) Bipolar I disorder, moderate, current or most recent episode manic, with anxious distress: Status: Chronic Attestations Medical Necessity Statement*: Patient requires hospitalization, for chest pain, outpatient with observation Coding Level of Care Code Acute Accounting Systems Analyst for [facility] Fwd Diagnoses Chest pain R07.9 NSTEMI (non-ST elevated myocardial infarction) I21.4 CAD (coronary artery disease) I25.10 Generalized anxiety disorder F41.1 Chronic post-traumatic stress disorder F43.12 Bipolar I disorder, moderate, current or most recent episode manic, with anxious distress F31.12
[2021-02-21 15:26] LABS: Estmated Average Glucose 108; Hemoglobin A1C 5.4 % (4.0-6.0)
[2021-02-21 15:34] LABS: Magnesium 2.2 mg/dL (1.7-2.3); NT Pro B Type Natriuretic Pept 467 pg/mL (0-125); Phosphorus 2.4 mg/dL (2.5-4.5)
[2021-02-21 15:35] LABS: Chol HDL Ratio 8.26 mg/dL (1.0-5.00); Cholesterol 256 mg/dL (0-200); HDL Cholesterol 31 mg/dL (60-100); LDL Cholesterol Calculated 181 mg/dL (50-129); LDL HDL Ratio 5.84 RATIO (0.00-3.22); Thyroid Stimulating Hormone 2.92 uIU/mL (0.27-4.20); Triglycerides 220 mg/dL (0-150)
[2021-02-21] MEDS: ticagrelor 90 mg Tablet 180 MG PO (15:55)
[2021-02-21] MEDS: CLONazepam 1 mg Tablet PO ×2 (15:55→21:05)
[2021-02-21] MEDS: pantoprazole 40 mg SDV IVP (15:56)
--- NOTE | 2021-02-21 16:36 | ECG_ITS ---
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 Measurements Intervals Reva Rate: 63 P: 33 ID: [id number] QRS: -33 QRSD: 104 T: -55 QT: 434 QTc: 445 Interpretive Statements SINUS RHYTHM LEFT AXIS DEVIATION [QRS AXIS < -30] LOW QRS VOLTAGE IN PRECORDIAL LEADS [QRS DEFLECTION < 1.0 mV IN CHEST LEADS] INCOMPLETE RIGHT BUNDLE BRANCH BLOCK [90+ ms QRS DURATION, TERMINAL R IN V1/V2, 40+ ms S IN I/aVL/V4/V5/V6] Refused nonspecific ST T changes PROBABLE SEPTAL MYOCARDIAL INFARCTION , PROBABLY OLD [35 ms Q WAVE IN V1/V2] Compared to ECG 02/21/2021 12:31:28 Left-axis deviation now present Sinus bradycardia no longer present Myocardial infarct finding still present Electronically Signed On 02-22-2021 0:53:24 CDT by Miyl Sandhu M.D. [email or web address]
[2021-02-21] MEDS: BuSPIRONE 10 mg Tablet 15 MG PO (17:31)
[2021-02-21] MEDS: carvedilol 3.125 mg Tablet PO (17:32)
[2021-02-21 19:30] LABS: SARS Covid-2 Antigen Negative (Negative)
[2021-02-21 20:44] LABS: Troponin 5 6HR Delta -21.4 ng/L (0-12)
[2021-02-21 20:45] LABS: Troponin 5 6HR 142.8 ng/L (0-15)
[2021-02-21] MEDS: atorvastatin 40 mg Tablet 80 MG PO (21:05)
[2021-02-22] VITALS (23 sets, daily range): BP systolic 89–123; BP diastolic 48–84; PULSE 47–61; RESP 16–26; TEMP 36.6–36.8; O2SAT 94–98
[2021-02-22 04:13] LABS: Basophils % 0.5 %; Eosinophils # 0.6 10^3/uL (0.0-0.8); Eosinophils % 8.7 %; Hematocrit 43.7 % (42.0-52.0); INR 1.01 (0.8-1.2); Lymphocytes # 2.1 10^3/uL (0.8-4.8); Lymphocytes % 28.6 %; Mean Corpuscular Hemoglobin 27.8 pg (28.0-34.0); Mean Corpuscular Volume 86.9 fL (80-94); Mean Platelet Volume 10.4 fL (7.4-10.4); Monocytes # 0.6 10^3/uL (0.2-0.9); Monocytes % 8.3 %; Neutrophils # 3.93 10^3/uL (1.8-7.7); Neutrophils % 53.6 %; Nucleated Red Blood Cells % 0 %; Platelet Count 321 10^3/cmm (130-400); Red Blood Count 5.03 10^6/uL (4.1-5.3); White Blood Count 7.3 10^3/uL (4.0-10.0)
[2021-02-22 04:22] LABS: Magnesium 2.2 mg/dL (1.7-2.3)
[2021-02-22 04:24] LABS: Anion Gap 12.9 (5-19); Blood Urea Nitrogen 14 mg/dL (6-20); Calcium 8.8 mg/dL (8.5-10.5); Carbon Dioxide 26 mmol/L (22-29); Chloride 107 mmol/L (98-107); Glomerular Filtration Rate 69.5 mL/min (90-130); Glucose 78 mg/dL (65-115); Osmolality Calculated 293 mOsm/kg (285-295); Potassium 3.9 mmol/L (3.5-5.1); Sodium 142 mmol/L (136-145)
[2021-02-22] MEDS: diphenhydrAMINE 50 mg Capsule PO (05:12)
[2021-02-22] MEDS: sodium chloride 0.9% 1,000 ML 50 ML IV (05:15)
--- NOTE | 2021-02-22 05:56 | PC.NURSE ---
0530 patient more anxious this morning. Asked multiple times when he can go home today and when they were coming to get him for his procedure. Pre cath cleanse done and pulses marked. Patient reported chest pain while asking multiple questions VS HR 53 SPO2 94% B/P 123/84 Lasted less than a minute total. Nonradiating and a level of 2 at max. Will continue to monitor
--- NOTE | 2021-02-22 06:46 | XACV_ITS ---
Exam Room: [facility] Ht: 170 cm Wt: 77 kg BSA: 1.92 m2 Gender: Male : 1965 Any Known Allergies: No known allergies Exam Priority: Routine Procedure(s): Procedure Description: Diagnostic procedure Procedure Description: PCI procedure Procedure Description: Drug Eluting Coronary Stent Procedure Description: PTCA Procedure Description: Miscellaneous Procedure Description: ACT Procedure Description: Coronary Angiography Diagnostic Cath Status: Urgent Diagnostic Findings * Left Main has no disease. * Proximal Left Anterior Descending: total occlusion, YAMEL: 0 flow. * Left Internal Mammary Artery to Mid Left Anterior Descending graft: patent. * Proximal Circumflex: total occlusion, YAMEL: 0 flow. * Proximal Right Coronary Artery to Mid Right Coronary Artery: total occlusion, YAMEL: 3 flow. * Ascending Aorta to Mid Right Coronary Artery graft: patent. * Ramus: moderate 50% stenosis, YAMEL: 3 flow. * Two grafts visualized. * Coronary angiography shows left dominance. Interventional Findings * Proximal Circumflex: 100% stenosis treated with a AB TREK 2.50X15 RX BALLOON, MARICARMEN Crump BRIDGER 3.0X26 KRIS, and MDT ARIANE EUPHORA RX [id number] BALLOON. 0% residual stenosis, YAMEL: 3 flow. Conclusions 1. There is total occlusion coronary artery disease with three vessel disease. 2. Two coronary grafts visualized: all grafts patent. 3. Patient has prior CABG. 4. Proximal Circumflex was treated with a Balloon, Drug Eluting Stent, and Balloon. Recommendations * Continue current medical management and risk factor modification. Pressures Phase:Rest AO : 123 / 65 ( 87 ) @ 6:43:00 AM 101 / 58 ( 73 ) @ 6:47:00 AM 104 / 52 ( 73 ) @ 6:57:00 AM Clinical Evaluation EBL: 5mL-10mL Procedural Details Pre-Procedure Time Out. Identified patient by full name and date of as verbalized by the patient/guarantor. Does the consent match the physician's order: Yes. Accurate & Complete Informed Consent: Yes. Inpatient/Outpatient History & Physical on Chart: Yes. If H&P is completed, is and addenduem needed: No; If yes, is the addendum complete: N/A. Visualize and Verify Site with Patient/Guarantor: N/A. Relevant Radiology Images available: N/A. Pre-op teaching completed and patient verbalized understanding. The risks, benefits, and alternatives of sedation and/or procedure were discussed by physician. The patient agrees to continue. Procedure started. [facility] Clinical Fraility Score: 4: Vulnerable. Clinical Engineering Director Indications: Worsening Angina. Chest Pain Symptom Assessment: Typical Angina Symptoms. Cardiovascular Instability: No. Correct patient, site and procedure confirmed by cath team. PERRLA. Strong, equal hand mechanical service technician bilaterally. Lungs clear x 5 lobes. IV Site on Arrival: 18 gauge in the left anticubital. IV Fluids: 0.9% NaCl at KVO. 0 mL infused prior to open hearth furnace laborer. Oxygen started at 2liters/min via nasal canula. Physician notified. Baseline sample Acquired. HR: 76 BPM. Pre Procedural Pulses: bilateral dorsalis pedis was Doppled. Pre Procedural Pulses: bilateral posterior tibial was Doppled. bilateral groins was prepped with chloroprep then draped in the usual sterile fashion. Equipment: 6F - Femoral. Cardiac Cath Pack. ACIST Manifold Kit Model BT 2000. Heparinized Saline (2 units/mL), 1000 mL bag. Kit, Micropuncture. Physician arrived. Physician scrubbed in. Immediate Pre-Procedure Time Out. Correct Patient: Yes; Correct Procedure: Yes; Correct Site: Yes; Correct Patient Position: Yes; Correct Supplies: Yes; Dried Flammable Prep: Yes; Blood Products Available: N/A;. Lidocaine 1% infiltrated to the right groin. Arterial access obtained with micropuncture set. A 5 [place] JL4 catheter in over wire. Catheter removed over the standard wire. A 5 [place] JR4 catheter in over wire. SVG's to RCA visualized and patent. Multiple views taken of left coronary artery. Multiple views taken of right coronary artery. DE LA FUENTE to LAD visualized. Catheter removed over the standard wire. 6 citizen [place] XB 3 guide catheter was inserted over the wire. Inventory is CRD 6FR XB 3 GUIDE. Runthrough guidewire was advanced through the guide catheter to lesion in the prox Circ. Guidewire advanced across lesion. Inflation number : 1 A AB TREK 2.50X15 RX BALLOON was prepped and advanced across the Prox CX , then inflated to 10 YUE for 0:22 seconds. Inflation number: 2 The AB TREK 2.50X15 RX BALLOON was reinflated across the Prox CX, to 14 YUE for 0:13 seconds. Results checked. Inflation number: 3 The AB TREK 2.50X15 RX BALLOON was reinflated across the Prox CX, to 8 YUE for 0:09 seconds. Inflation number: 4 The AB TREK 2.50X15 RX BALLOON was reinflated across the Prox CX, to 14 YUE for 0:14 seconds. Results checked. Balloon out. ACT drawn. Results 224 seconds. Therapeutic limits - pre-heparin administration 90-150 seconds and monitoring heparin during a vascular procedure >250 seconds. Inflation Number : 5 A MARICARMEN Crump BRIDGER 3.0X26 KRIS -Lot Number# [id number] exp date 09/14/2022 was prepped and advanced across the Prox CX. The stent was deployed at 14 YUE for 0:42 seconds. Stent balloon out over wire. Inflation number : 6 A MARICARMEN THAKKAR EUPHORA RX [id number] BALLOON was prepped and advanced across the Prox CX , then inflated to 14 YUE for 0:19 seconds. Balloon out. Wire out. Guide catheter out. Physician scrubbed out. A Suture was successful obtaining hemostatsis at the Right Femoral artery insertion site. Sheath(s) sutured into position with 2-0 silk and sterile 4x4's and Op-site applied over the site. No oozing or signs and symptoms of hematoma noted. Arterial sheath flushed and connected to tranducer and pressure bag with heparinized saline. Post Procedure: Pulses reassessed and unchanged. PERRLA. Strong, equal hand mechanical service technician bilaterally. No VTE prophylaxis required. Medication's Wasted: Heparin = 4000 units. Total IV fluids: 100 mL. Contrast type used: Omnipaque 300 mgI/mL, 500 mL bottle. Post-op diagnosis: CAD. stent placed to Circumflex. PCI Indication: NSTE. Complications: none. Estimated blood loss: 5mL-10mL. Procedure completed. Patient transferred by bed to 1st floor. Vital chart was stopped. Access Site Site: Right Femoral artery Sheath Size: 6 Fr Hemostasis Method: Suture Hemostasis Success: Successful Procedure Medications Start: 7:32 AM Stop: 7:32 AM Medication: Versed Amount: 1 mg Route: I.V. Start: 7:32 AM Stop: 7:32 AM Medication: Fentanyl Amount: 50 mcg Route: I.V. Start: 7:38 AM Stop: 7:38 AM Medication: Versed Amount: 1 mg Route: I.V. Start: 7:57 AM Stop: 7:57 AM Medication: Heparin Amount: 7000 units Route: I.V. Start: 8:10 AM Stop: 8:10 AM Medication: Heparin Amount: 3000 units Route: I.V. Start: 8:10 AM Stop: 8:10 AM Medication: Fentanyl Amount: 50 mcg Route: I.V. I, the attending physician, have reviewed and verified all procedure medications. Yes, all medications given per verbal order History/Risk Factors Hypertension: Yes Dyslipidemia: No Peripheral Arterial Disease (PAD): No Myocardial Infarction (CO): Yes Obesity: No Renal Disease: No Prior Interventions PCI: Yes CABG: Yes Valve Surgery: No Report Signatures Finalized by Ludmila De León MD on 03/06/2021 07:36 PM
--- NOTE | 2021-02-22 07:45 | PC.NURSE ---
Pt was already taken to the cathead worker
[2021-02-22] MEDS: sodium chloride 0.9% 1,000 ML 100 ML IV ×2 (08:30→21:55)
--- NOTE | 2021-02-22 08:30 | PC.NURSE ---
Received from labeling associate Pt is awake, oriented. Denies any pain. Sheath to riht groin is intact. no bleeding, swelling or hematoma. DP and PT on right right foot is palpable +3. skin is warm. Activity restrictions discuss to pt post cath procedure such as bedrest and no bending or flexing right hip and right lower ext. urinal and call light provided. vs monitored
--- NOTE | 2021-02-22 09:28 | PC.CHAP ---
Pastoral Care Encounter/Spiritual Assessment Type of Contact [] Declined fourth grade teacher visit [] Patient/Family/Request visit [] Outpatient visit [] Follow-up visit [] Physician referral [] Code/Alert [x] Routine visit [] Staff referral [] Actively dying [] Patient sleeping [] Family support [] [] Out of room [] Palliative care [] [x] Receiving care in room [] Pre-surgical visit [] Trauma [] Long length of stay [] ICU visit [] Other: Relational/Emotional Strength [] Patient feels connected with others/family/visitors/staff [] Distress [] Loneliness/isolation [] Abandonment Spirituality of Patient [] Person of Scarlet [] Attends Buddhism of their Scarlet [] Believes in Prayer [] Reads Bible or Anglican materials [] There are Spiritual issues to be addressed Crayon Sorting Machine Feeder Interventions [x] Prayer [] Active listening [] Non-anxious presence [] Spiritual/emotional support [] Crisis/trauma care [] Spiritual counseling [] Bereavement support [] Provided bereavement packet [] Provided Bible/devotional materials [] Provided toy/stuffed animal, coloring book to patient or family member [] Provided Communion [] Anointing/[place] [] Salvation [x] Completed spiritual assessment [] Other: Impact on Illness or Injury [] Angry [] Fearful [] Anxious [] Often cries [] Exhaustion [] Unable to work [] Unable to attend lutheran [] Unable to walk/stand [] Unable to read [] Unable to drive [] Unable to eat/drink [] Unable to sleep [] Unable to be with family [] Patient intubated [] Other: Summary Time spent with patient
[2021-02-22] MEDS: BuSPIRONE 10 mg Tablet 15 MG PO ×2 (09:59→18:29)
[2021-02-22] MEDS: aspirin 81 mg EC Tablet PO (10:00)
[2021-02-22] MEDS: buPROPion XL (24 HR) 150 mg Tablet PO (10:00)
[2021-02-22] MEDS: CLONazepam 1 mg Tablet PO ×3 (10:01→21:54)
[2021-02-22] MEDS: ticagrelor 90 mg Tablet PO ×2 (10:01→18:29)
[2021-02-22] MEDS: lamoTRIgine 100 mg Tablet 150 MG PO (10:01)
--- NOTE | 2021-02-22 10:21 | W.PM.OPSUD ---
Surgery/Procedure H&P Update DATE OF PROCEDURE: February 22, 2021 DATE H&P PERFORMED: 02/21/21 H&P UPDATE INFORMATION: I have reviewed H&P completed within last 30 days and I have examined patient prior to procedure PREOP DIAGNOSIS: Non-ST relation MD PATIENT REASSESSED PRIOR TO SEDATION, WITH NO CHANGE NOTED: Yes PHYSICAL EXAM: alert, oriented x 3 and clear to auscultation bilaterally AIRWAY EVAL/ANESTHESIA PLAN: ASA II, Risks, benefits & alternatives of sedation and/or procedure discussed and Patient agrees to continue as planned
--- NOTE | 2021-02-22 11:56 | PC.NURSE ---
Home meds Pt refused to count his Klonopin in his bottle. Peak on the bottle and there are 3 tabs.
--- NOTE | 2021-02-22 12:50 | PM.PN ---
Subjective Subjective: Interval history: Patient underwent cardiac catheterization via right femoral approach this morning by Dr. De León Medications: Reviewed: Yes Vitals/I&O/Wt Last Vital Signs Temp 98 F 02/22/21 04:00 Pulse 50 L 02/22/21 12:00 Resp 24 H 02/22/21 08:00 BP 89/50 02/22/21 11:00 Pulse Ox 95 02/22/21 08:45 02/21/21 02/22/21 02/22/21 22:59 06:59 14:59 Intake Total 240 / 240 Balance 240 / 240 Weight last 48 hrs Weight 170 lb Physical Exam Narrative: EXAM NARRATIVE: GENERAL: Averagely built and averagely nourished in no acute distress HEENT: Extraocular movement intact. Pupils equal round reactive to light. No pallor or icterus. NECK: central trachea, No JVD. No carotid bruit. CARDIOVASCULAR SYSTEM: S1-S2 regular. No S3 or S4 present. No murmur rubs or gallops. RESPIRATORY SYSTEM: Chest clear to auscultation. No wheezes rhonchi or rubs heard. No use of accessory muscles. ABDOMEN: Soft, nontender and nondistended. Normal bowel sounds present. EXTREMITIES: No cyanosis or clubbing. No edema. No signs of chronic venous insufficiency. BIOMECHANICAL ENGINEER: Patient is alert oriented ?3. No focal neurological deficits. Data : 02/22/21 03:20 02/22/21 03:20 A&P Assessment and plan (1) NSTEMI (non-ST elevated myocardial infarction): -s/p Px LCx KRIS (MDT BRIDGER 3 x 26 mm). patent SVG to RCA and DE LA FUENTE-LAD. -started on Brilinta 180 mg PO X 1 and then 90 Mg BID -continue statin, ASA. -Normal LV function on echo. -No beta ben for now given soft BP and HR in 40's at night. Status: Acute (2) CAD (coronary artery disease): H/O CABG x 2 Status: Acute Additional A&P Information Hyperlipidemia PTSD Anxiety H/O Non compliance Thank you for allowing me to paticipate in patient's care. Please feel free to call with questions or concerns. Attestations Medical Necessity Statement*: needs hospital stay post PCI Time Spent in Patient Care: 16 - 35 minutes (>than 50% of time spent in counselling and/or direct pt care on unit). Coding Level of Care Code Acute Desk Clerk for Chg Fwd Diagnoses NSTEMI (non-ST elevated myocardial infarction) I21.4 CAD (coronary artery disease) I25.10
[2021-02-22 13:23] LABS: Partial Thromboplastin Time 211.6 SECONDS (23.9-36.7)
[2021-02-22] MEDS: pantoprazole 40 mg SDV IVP (15:17)
[2021-02-22 16:29] LABS: Partial Thromboplastin Time 42.7 SECONDS (23.9-36.7)
--- NOTE | 2021-02-22 17:15 | PC.NURSE ---
Sheath removal Explained procedure to pt. Pt verbalizes understanding. Palpated femoral pulse on right groin. 6 Fr sheath removed on right groin. Catheter tip intact. Manual pressure held for 20 mins. No hematoma, swelling, or bleeding. Pedal pulses DP and PT are palpable +3 on Bilat LE. Dressing applied on right groin. Activity restrictions and bedrest discuss to pt. Pt verbalizes understanding.
--- NOTE | 2021-02-22 17:18 | P.PN_ITS ---
Subjective Subjective: Interval history: Patient was seen this morning, after his Health Insurance Sales Agent procedure, he had stent placed to his left circumflex, he tells me is feeling better, no chest pain, no shortness of breath Vitals/I&O/Wt Last Vital Signs Temp 98 F 02/22/21 04:00 Pulse 50 L 02/22/21 14:00 Resp 24 H 02/22/21 08:00 BP 116/79 02/22/21 14:00 Pulse Ox 95 02/22/21 14:00 02/22/21 02/22/21 02/22/21 06:59 14:59 22:59 Intake Total 222 / 222 Output Total 280 / 280 Balance 222 / 222 -280 / -58 Weight last 48 hrs Weight 77.111 kg Physical Exam Const: COMMON NORMALS: no acute distress and patient oriented x3 HENMT: COMMON NORMALS: normocephalic HEAD & SCALP: normocephalic Resp: COMMON NORMALS: normal respiratory effort, No retractions, No use of accessory muscles and clear to auscultation bilaterally AUSCULTATION: clear to auscultation bilaterally Cardio: COMMON NORMALS: regular rhythm, S1 normal heart sound present and S2 normal heart sound present RATE: bradycardic RHYTHM: regular rhythm HEART SOUNDS: S1 normal heart sound present and S2 normal heart sound present GI: COMMON NORMALS: Normal to inspection, nondistended, normoactive bowel sounds present, Soft to palpation, non-tender, No hepatosplenomegaly present, no masses and no bruits PALPATION: Yes Soft to palpation and Yes No hepatosplenomegaly present Extremity: COMMON NORMALS: capillary refill normal, no clubbing, cyanosis or edema, no calf tenderness and no pedal edema Neuro: COMMON NORMALS: patient oriented x3 Psych: COMMON NORMALS: mental status grossly normal Data : 02/22/21 03:20 02/22/21 03:20 A&P Assessment and plan (1) Chest pain: -With history of stenting, status post CABG, history of noncompliance -Baseline troponin I 53, 120-minute 164.2, delta 11.2 -EKG no acute ST-T wave changes -Currently no chest pain -Underwent cardiac catheterization, status post drug-eluting stent to left circumflex Plan: -Admit to cardiac stepdown unit -Monitor for chest pain -Aspirin, statin, Brilinta -Cardiac echocardiogram pending -Wean oxygen as tolerated -Cardiology on consult -Full code -Lovenox for DVT prophylaxis starting tomorrow, SCDs for now Status: Acute (2) NSTEMI (non-ST elevated myocardial infarction): Status: Acute (3) CAD (coronary artery disease): Status: Acute (4) Generalized anxiety disorder: Status: Chronic (5) Chronic post-traumatic stress disorder: Status: Chronic (6) Bipolar I disorder, moderate, current or most recent episode manic, with anxious distress: Status: Chronic Attestations Medical Necessity Statement*: Patient requires hospitalization for chest pain, status post left circumflex stenting Coding Level of Care Code Acute Assistant County Engineer for [facility] Fwd Diagnoses Chest pain R07.9 NSTEMI (non-ST elevated myocardial infarction) I21.4 CAD (coronary artery disease) I25.10 Generalized anxiety disorder F41.1 Chronic post-traumatic stress disorder F43.12 Bipolar I disorder, moderate, current or most recent episode manic, with anxious distress F31.12
--- NOTE | 2021-02-22 18:30 | PC.NURSE ---
Physician notified Talked to Dr. Beauchamp on Pt BP has been on low 84/56. HR-50s. Pt denies any symptoms of dizziness or lightheadedness. Pt has NS running at 100 mls/hr. Pt stated he is tired. Denies any pain. Received telephone order to give 500 NS bolus once. 1900- BP 99/48 after fluid bolus. pt denies any concerns. No bleeding on right groin.
[2021-02-22] MEDS: sodium chloride 0.9% 500 ML 999 ML IV (18:46)
[2021-02-22] MEDS: atorvastatin 40 mg Tablet 80 MG PO (21:54)
[2021-02-23] VITALS (10 sets, daily range): BP systolic 91–123; BP diastolic 57–83; PULSE 54–84; RESP 16–26; TEMP 36.6–37.1; O2SAT 87–98
--- NOTE | 2021-02-23 04:12 | PC.NURSE ---
0330 Patient up and ambulated to bathroom. Tolerated very well. Cath site clean and unchanged post ambulation.
--- NOTE | 2021-02-23 04:50 | PC.NURSE ---
02/23/21 Patient ambulated to ER to look for vehicle without assistance, after unhooking self from monitor. Assisted back to his room. Tolerated ambulation well, no change in cath site. Patient instructed to use call light upon getting up and to never leave his room without asking for assistance. Will continue to monitor
[2021-02-23] MEDS: buPROPion XL (24 HR) 150 mg Tablet PO (05:09)
[2021-02-23] MEDS: lamoTRIgine 100 mg Tablet 150 MG PO (05:09)
[2021-02-23 05:55] LABS: Basophils % 0.5 %; Eosinophils # 0.8 10^3/uL (0.0-0.8); Eosinophils % 8.6 %; Hemoglobin 13.6 g/dL (11.7-16.6); Lymphocytes # 2.2 10^3/uL (0.8-4.8); Lymphocytes % 24.9 %; Mean Corpuscular HGB Conc 31.6 g/dL (30.0-36.0); Mean Corpuscular Hemoglobin 28.4 pg (28.0-34.0); Mean Corpuscular Volume 89.8 fL (80-94); Mean Platelet Volume 10.6 fL (7.4-10.4); Monocytes # 0.6 10^3/uL (0.2-0.9); Monocytes % 7.2 %; Neutrophils # 5.09 10^3/uL (1.8-7.7); Neutrophils % 58.5 %; Nucleated Red Blood Cells % 0 %; Platelet Count 286 10^3/cmm (130-400); Red Blood Count 4.79 10^6/uL (4.1-5.3); Red Cell Distribution Width 12.8 % (12.1-15.1); White Blood Count 8.7 10^3/uL (4.0-10.0)
[2021-02-23 06:12] LABS: Anion Gap 11.3 (5-19); Blood Urea Nitrogen 12 mg/dL (6-20); Calcium 8.3 mg/dL (8.5-10.5); Carbon Dioxide 28 mmol/L (22-29); Chloride 105 mmol/L (98-107); Glomerular Filtration Rate 62.9 mL/min (90-130); Glucose 82 mg/dL (65-115); Osmolality Calculated 289 mOsm/kg (285-295); Potassium 4.3 mmol/L (3.5-5.1); Sodium 140 mmol/L (136-145)
[2021-02-23] MEDS: ticagrelor 90 mg Tablet PO (09:09)
[2021-02-23] MEDS: aspirin 81 mg EC Tablet PO (09:09)
[2021-02-23] MEDS: CLONazepam 1 mg Tablet PO (09:09)
[2021-02-23] MEDS: BuSPIRONE 10 mg Tablet 15 MG PO (09:09)
--- NOTE | 2021-02-23 10:05 | P.PN_ITS ---
Subjective Subjective: Interval history: He feels well. denies any complaints. Medications: Reviewed: Yes Vitals/I&O/Wt Last Vital Signs Temp 98.5 F 02/23/21 09:42 Pulse 68 02/23/21 09:42 Resp 17 02/23/21 09:42 BP 98/65 02/23/21 09:42 Pulse Ox 94 02/23/21 09:42 02/22/21 02/23/21 02/23/21 22:59 06:59 14:59 Intake Total 1500 / 1722 240 / 1962 360 / 360 Output Total 730 / 730 350 / 1080 Balance 770 / 992 -110 / 882 360 / 360 Weight last 48 hrs Weight 170 lb Physical Exam Narrative: EXAM NARRATIVE: GENERAL: Averagely built and averagely nourished in no acute distress HEENT: Extraocular movement intact. Pupils equal round reactive to light. No pallor or icterus. NECK: central trachea, No JVD. No carotid bruit. CARDIOVASCULAR SYSTEM: S1-S2 regular. No S3 or S4 present. No murmur rubs or gallops. RESPIRATORY SYSTEM: Chest clear to auscultation. No wheezes rhonchi or rubs heard. No use of accessory muscles. ABDOMEN: Soft, nontender and nondistended. Normal bowel sounds present. EXTREMITIES: No cyanosis or clubbing. No edema. No signs of chronic venous insufficiency. Right femoral access site without significant bruising or hematoma. Good peripheral pulses. DATA ANALYST ETL DEVELOPER: Patient is alert oriented ?3. No focal neurological deficits. Data : 02/23/21 05:06 02/23/21 05:06 A&P Assessment and plan (1) NSTEMI (non-ST elevated myocardial infarction): -s/p Px LCx KRIS (MDT BRIDGER 3 x 26 mm). patent SVG to RCA and DE LA FUENTE-LAD. -started on Brilinta 180 mg PO X 1 and then 90 Mg BID -continue statin, ASA. -Normal LV function on echo. -No beta ben for now given soft BP and HR in 40's at night. Stable to be discharged home from cardiac standpoint. F/u with Ms. Cifuentes in 1 week and with me in 4-6 weeks. -Compliance with meds and post cath care discussed with patient. Status: Acute (2) CAD (coronary artery disease): H/O CABG x 2 Status: Acute Additional A&P Information Hyperlipidemia PTSD Anxiety H/O Non compliance Thank you for allowing me to paticipate in patient's care. Please feel free to call with questions or concerns. Attestations Medical Necessity Statement*: Stable to be discharged home. Time Spent in Patient Care: 16 - 35 minutes (>than 50% of time spent in counselling and/or direct pt care on unit) . Coding Level of Care Code Acute Director Of Loss Prevention for Danielle Pepper Diagnoses NSTEMI (non-ST elevated myocardial infarction) I21.4 CAD (coronary artery disease) I25.10
--- NOTE | 2021-02-23 10:34 | PC.CHAP ---
Pastoral Care Encounter/Spiritual Assessment Type of Contact [] Declined head filter tank tender helper visit [] Patient/Family/Request visit [] Outpatient visit [] Follow-up visit [] Physician referral [] Code/Alert [x] Routine visit [] Staff referral [] Actively dying [] Patient sleeping [] Family support [] [] Out of room [] Palliative care [] [x] Receiving care in room [] Pre-surgical visit [] Trauma [] Long length of stay [] ICU visit [] Other: Relational/Emotional Strength [x] Patient feels connected with others/family/visitors/staff [c] Distress [] Loneliness/isolation [] Abandonment Spirituality of Patient [x] Person of Scarlet [] Attends Quaker of their [place] [x] Believes in Prayer [] Reads Bible or Sikhism materials [] There are Spiritual issues to be addressed Box Inspector Interventions [x] Prayer [x] Active listening [x] Non-anxious presence [x] Spiritual/emotional support [] Crisis/trauma care [x] Spiritual counseling [] Bereavement support [] Provided bereavement packet [] Provided Bible/devotional materials [] Provided toy/stuffed animal, coloring book to patient or family member [] Provided Communion [] Anointing/[place] [] Salvation [x] Completed spiritual assessment [] Other: Impact on Illness or Injury [] Angry [] Fearful [x] Anxious [] Often cries [] Exhaustion [] Unable to work [] Unable to attend spiritism [] Unable to walk/stand [] Unable to read [] Unable to drive [] Unable to eat/drink [] Unable to sleep [] Unable to be with family [] Patient intubated [] Other: Summary chest pain had a stent 1 will need some revoery time has some discomfort has negative feels going home Time spent with patient 10 mins
--- NOTE | 2021-02-23 11:24 | P.DS_ITS ---
Discharge Providers Date of Admission: 02/22/21 17:30 Date of Discharge: February 23, 2021 Attending Provider at Admission: Domingo Beauchamp MD Attending Provider at Discharge: Domingo Beauchamp MD Diagnoses at Discharge Discharge Diagnosis (1) NSTEMI (non-ST elevated myocardial infarction): Status: Acute (2) CAD (coronary artery disease): Status: Acute Reason for Visit Reason for Visit: chest pain Hospital Course Hospital Course This is a 55-year-old male with a past medical history of CAD, history of stent placement, history of CABG, history of anxiety depression, who presents to [facility] due to complaints of chest pain. Patient was admitted to [facility] for chest pain, with elevated troponins, EKG with no acute ST-T wave changes, echocardiogram showed an EF of 55 to 60% with possible hypokinesis of the apical septal wall and normal diastolic function, he underwent cardiac catheterization with drug-eluting stent to left circumflex. Discharged on aspirin, statin, Brilinta, with close follow-up with cardiology as outpatient. 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 request for service Routin e Exams 02/22/21 06:46 Taken Labs from last 24 hours 02/23/21 02/23/21 02/22/21 05:06 05:06 15:15 WBC 8.7 RBC 4.79 Hgb 13.6 Hct 43.0 MCV 89.8 MCH 28.4 MCHC 31.6 RDW 12.8 Plt Count 286 MPV 10.6 H Neut % (Auto) 58.5 Lymph % (Auto) 24.9 Tripp % (Auto) 7.2 Eos % (Auto) 8.6 Baso % (Auto) 0.5 Neut # (Auto) 5.09 Lymph # (Auto) 2.2 Tripp # (Auto) 0.6 Eos # (Auto) 0.8 Baso # (Auto) 0.0 Nucleated RBC % (a uto) 0 Nucleated RBCs # 0.0 APTT 42.7 H D Sodium 140 Potassium 4.3 Chloride 105 Carbon Dioxide 28 Anion Gap 11.3 BUN 12 Creatinine 1.2 GFR Calculation 62.9 L Glucose 82 Calculated Osmolal ity 289 Calcium 8.3 L 02/22/21 12:19 WBC RBC Hgb Hct MCV MCH MCHC RDW Plt Count MPV Neut % (Auto) Lymph % (Auto) Tripp % (Auto) Eos % (Auto) Baso % (Auto) Neut # (Auto) Lymph # (Auto) Tripp # (Auto) Eos # (Auto) Baso # (Auto) Nucleated RBC % (a uto) Nucleated RBCs # APTT 211.6 H* Sodium Potassium Chloride Carbon Dioxide Anion Gap BUN Creatinine GFR Calculation Glucose Calculated Osmolal ity Calcium Vitals: Last Vital Signs Temp 98.4 F 02/23/21 11:14 Pulse 67 02/23/21 11:14 Resp 17 02/23/21 11:14 BP 123/81 02/23/21 11:14 Pulse Ox 91 02/23/21 11:14 Discharge Plan Discharge Patient Disposition: Home Condition: Stable Prescriptions: New atorvastatin 40 mg Tablet 80 mg PO BEDTIME 90 Days Qty: 90 RF: 2 Brilinta 90 mg Tablet 90 mg PO BID 30 Days Qty: 60 RF: 11 nitroglycerin 0.4 mg Tablet, Sublingual 0.4 mg sublingual Q5M PRN (Reason: Chest Pain) 30 Days Qty: 30 RF: 2 aspirin 81 mg tablet,chewable 81 mg PO DAILY Qty: 30 RF: 3 Continued diphenhydramine HCl [Benadryl Allergy] 25 mg tablet 25 mg PO BEDTIME PRN (Reason: allergy symptoms) RF: 0 bupropion HCl [Wellbutrin XL] 150 mg tablet extended release 24 hr 150 mg PO QAM Qty: 90 RF: 2 buspirone 15 mg tablet 15 mg PO BID Qty: 180 RF: 2 lamotrigine [Lamictal] 150 mg tablet 150 mg PO QAM Qty: 90 RF: 2 clonazepam 1 mg tablet 1 mg PO TID Qty: 90 RF: 3 Discharge Orders: Discharge Order (Routine); Ordered 02/23/21 Ordered By: Domingo Beauchamp Referrals: Sara Cifuentes FNP [Nurse Practitioner] - 4-7 days (Post LHC and stent follow up.) Gabby Garza MD [Physician] - 1 month Patient Instructions: Myocardial Infarction (DC), Left Heart Catheterization (DC), Opioid Safety Activity Restrictions/Additional Instructions: -Please use aspirin, Brilinta, statin as prescribed -If have recurrent chest pain please come back to emergency room -Follow-up with cardiology as prescribed Discharge Attestations Time Spent in Discharge Care*: less than 30 min Quality Metrics Clinical Quality Measures During this hospital stay, did patient experience: None Coding Level of Care Code Acute Chg FW DC note Diagnoses NSTEMI (non-ST elevated myocardial infarction) I21.4 CAD (coronary artery disease) I25.10
--- NOTE | 2021-02-23 12:08 | PC.NURSE ---
pt qualifies for home oxygen. awaiting for O2 to be delivered Case mgt stated pt choose [facility]
--- NOTE | 2021-02-23 13:25 | PC.NURSE ---
meds to bed delivered awaiting for home oxygen.
--- NOTE | 2021-02-23 13:59 | PC.NURSE ---
Pt stated he does not have any transportation since he drove himself with his car to this facility. Notified Dr. montejo for his discharge transport disposition that he does not have anybody to transport him. is aware that pt will drive himself. Pt stated he will be careful driving.
--- NOTE | 2021-02-23 14:00 | PC.NURSE ---
Pt reported he took his Brilinta and Aspirin at this time. These meds were the ones that were delivered via meds to bed. Informed pt that he had received his Brilinta and aspirin this morning as scheduled. pt stated he forgot. Notified Dr. Garza via voalte phone regarding pt have taken the 2nd dose of Brilinta and an aspirin. Dr. Garza reply order to let the pt take his brilinta tomorrow at 6 am since he have taken the 2nd dose early this afternoon. Discharge med list was provided to pt and educated pt that he needs to take his Brilinta tomorrow morning at 6 am and then evening. Educated pt that he has to comply with all the prescribed meds listed in his discharge paper such as their actions, dosing, timing and possible side effects. Pt verbalizes understanding. Pt was asked if he has any other questions regarding his new meds. Pt denies any concerns at this time.
--- NOTE | 2021-02-23 14:05 | PC.NURSE ---
Pt oxygen arrived. [facility] delivered his portable oxygen.
--- NOTE | 2021-02-23 14:30 | PC.NURSE ---
Discharge to home Informed pt on his appointments. Post angiogram home care instructions. Educated pt on his new meds dosing, timing, possible side effects and continued meds. Discharge packet provided to pt. Informed pt that his other 2 new meds are sent to [facility]. pt verbalizes understanding. ushered via wheelchair.
== END 2021-02-23 14:30 | disposition home or self-care (01) | DRG 247 ==
LOC: ER 10:52 → CSU 13:27
PROVIDERS: Internal Medicine Cardiovascular Disease; Physician Assistant; Admitting Provider Family Medicine; Emergency Provider Family Medicine; Visit Provider Family Medicine
PROC: 027034Z Dilation of Coronary Artery, One Artery with Drug-eluting Intraluminal Device, Percutaneous Approach (ICD-10-PCS; principal; 2021-02-22 07:00)
PROC: 027034Z Dilation of Coronary Artery, One Artery with Drug-eluting Intraluminal Device, Percutaneous Approach (ICD-10-PCS; 2021-02-22 07:00)
DX: I21.4 Non-ST elevation (NSTEMI) myocardial infarction (principal); I25.729 Atherosclerosis of autologous artery coronary artery bypass graft(s) with unspecified angina pectoris; I25.719 Atherosclerosis of autologous vein coronary artery bypass graft(s) with unspecified angina pectoris; F31.12 Bipolar disorder, current episode manic without psychotic features, moderate; I25.119 Atherosclerotic heart disease of native coronary artery with unspecified angina pectoris; Z95.5 Presence of coronary angioplasty implant and graft; Z95.1 Presence of aortocoronary bypass graft; F43.12 Post-traumatic stress disorder, chronic; F41.1 Generalized anxiety disorder; Z87.891 Personal history of nicotine dependence; E78.5 Hyperlipidemia, unspecified
CPT/HCPCS: 36415; 71045; 80048; 80053; 80061; 83036; 83735; 83880; 84100; 84443; 84484; 85025; 85347; 85610; 85730; 87426; 93005; 93306; 93455; 94664; 96372; 99285; C1725; C1769; C1874; C1887; C1894; C9113; C9600; G0378; J1644; J1650; J2250; J3010; J7030; J7040; Q0163; Q9967

== ENCOUNTER → 2021-03-02 15:55 | Outpatient (BNVA) | payer MEDICAID, SELFPAY | PROVIDERS: Visit Provider Nurse Practitioner Family | DX: I25.119 Atherosclerotic heart disease of native coronary artery with unspecified angina pectoris (principal) | CPT/HCPCS: 80048 ==

== ENCOUNTER → 2021-03-29 07:15 | Outpatient (BNVA) | payer MEDICAID, SELFPAY | PROVIDERS: Visit Provider Nurse Practitioner Psychiatric/Mental Health | DX: F31.12 Bipolar disorder, current episode manic without psychotic features, moderate (principal); F43.12 Post-traumatic stress disorder, chronic; F41.1 Generalized anxiety disorder; F60.81 Narcissistic personality disorder | CPT/HCPCS: 99214 ==

== ENCOUNTER → 2021-05-05 09:48 | Outpatient (BNVA) | payer MEDICAID, SELFPAY | PROVIDERS: Visit Provider Nurse Practitioner Psychiatric/Mental Health | DX: F31.12 Bipolar disorder, current episode manic without psychotic features, moderate (principal); F43.12 Post-traumatic stress disorder, chronic; F41.1 Generalized anxiety disorder; F60.81 Narcissistic personality disorder | CPT/HCPCS: 99214 ==

== ENCOUNTER → 2021-06-02 07:20 | Outpatient (BNVA) | payer MEDICAID, SELFPAY | PROVIDERS: Visit Provider Nurse Practitioner Psychiatric/Mental Health | DX: F31.12 Bipolar disorder, current episode manic without psychotic features, moderate (principal); F43.12 Post-traumatic stress disorder, chronic; F41.1 Generalized anxiety disorder; F60.81 Narcissistic personality disorder | CPT/HCPCS: 99214 ==

== ENCOUNTER → 2021-06-27 14:52 | Outpatient (BNVA) | payer MEDICAID, SELFPAY | PROVIDERS: Visit Provider Internal Medicine Cardiovascular Disease | DX: E78.5 Hyperlipidemia, unspecified (principal); I25.119 Atherosclerotic heart disease of native coronary artery with unspecified angina pectoris | CPT/HCPCS: 80053; 80061; 83721 ==

== ENCOUNTER → 2021-06-29 08:27 | Outpatient (BNVA) | payer MEDICAID, SELFPAY | PROVIDERS: Visit Provider Nurse Practitioner Psychiatric/Mental Health | DX: F31.12 Bipolar disorder, current episode manic without psychotic features, moderate (principal); F43.12 Post-traumatic stress disorder, chronic; F41.1 Generalized anxiety disorder; F60.81 Narcissistic personality disorder | CPT/HCPCS: 99214 ==

== ENCOUNTER → 2021-07-28 08:15 | Outpatient (BNVA) | payer MEDICAID, SELFPAY | PROVIDERS: Visit Provider Nurse Practitioner Psychiatric/Mental Health | DX: F31.12 Bipolar disorder, current episode manic without psychotic features, moderate (principal); F43.12 Post-traumatic stress disorder, chronic; F41.1 Generalized anxiety disorder; F60.81 Narcissistic personality disorder | CPT/HCPCS: 99214 ==

== ENCOUNTER → 2021-09-04 08:05 | Outpatient (BNVA) | payer MEDICAID, SELFPAY | PROVIDERS: Visit Provider Nurse Practitioner Psychiatric/Mental Health | DX: F31.12 Bipolar disorder, current episode manic without psychotic features, moderate (principal); F43.12 Post-traumatic stress disorder, chronic; F41.1 Generalized anxiety disorder; F60.81 Narcissistic personality disorder | CPT/HCPCS: 99214 ==

== ENCOUNTER → 2021-10-09 08:21 | Outpatient (BNVA) | payer MEDICAID, SELFPAY | PROVIDERS: Visit Provider Nurse Practitioner Psychiatric/Mental Health | DX: F41.1 Generalized anxiety disorder (principal); F43.12 Post-traumatic stress disorder, chronic; F31.12 Bipolar disorder, current episode manic without psychotic features, moderate; F60.81 Narcissistic personality disorder | CPT/HCPCS: 99214 ==

== ENCOUNTER → 2021-11-06 08:01 | Outpatient (BNVA) | payer MEDICAID, SELFPAY | PROVIDERS: Visit Provider Nurse Practitioner Psychiatric/Mental Health | DX: F31.12 Bipolar disorder, current episode manic without psychotic features, moderate (principal); F43.12 Post-traumatic stress disorder, chronic; F41.1 Generalized anxiety disorder; F60.81 Narcissistic personality disorder | CPT/HCPCS: 99214 ==

== ENCOUNTER → 2021-12-26 07:24 | Outpatient (BNVA) | payer MEDICAID, SELFPAY | PROVIDERS: Visit Provider Nurse Practitioner Psychiatric/Mental Health | DX: F31.12 Bipolar disorder, current episode manic without psychotic features, moderate (principal); F43.12 Post-traumatic stress disorder, chronic; F41.1 Generalized anxiety disorder; F60.81 Narcissistic personality disorder | CPT/HCPCS: 99214 ==

== ENCOUNTER → 2022-01-31 07:57 | Outpatient (BNVA) | payer MEDICAID, SELFPAY | PROVIDERS: Visit Provider Nurse Practitioner Psychiatric/Mental Health | DX: F31.12 Bipolar disorder, current episode manic without psychotic features, moderate (principal); F43.12 Post-traumatic stress disorder, chronic; F41.1 Generalized anxiety disorder; F60.81 Narcissistic personality disorder | CPT/HCPCS: 99214 ==

== ENCOUNTER → 2022-02-07 14:41 | Outpatient (BNVA) | payer MEDICAID, SELFPAY | PROVIDERS: Visit Provider Internal Medicine Cardiovascular Disease | DX: I25.119 Atherosclerotic heart disease of native coronary artery with unspecified angina pectoris (principal); Z95.1 Presence of aortocoronary bypass graft; E78.5 Hyperlipidemia, unspecified; F43.12 Post-traumatic stress disorder, chronic; F31.12 Bipolar disorder, current episode manic without psychotic features, moderate; F41.1 Generalized anxiety disorder; Z87.891 Personal history of nicotine dependence | CPT/HCPCS: 99214 ==

== ENCOUNTER → 2022-11-07 15:44 | Outpatient (BNVA) | payer MEDICAID, SELFPAY | PROVIDERS: Visit Provider Nurse Practitioner Family | DX: I25.119 Atherosclerotic heart disease of native coronary artery with unspecified angina pectoris (principal); E78.5 Hyperlipidemia, unspecified; R07.9 Chest pain, unspecified; Z87.891 Personal history of nicotine dependence; Z95.1 Presence of aortocoronary bypass graft; Z79.82 Long term (current) use of aspirin | CPT/HCPCS: 36415; 80053; 80061; 85025; 99214 ==

== ENCOUNTER 2023-04-15 11:02 | Emergency (ER) | payer MEDICAID, SELFPAY ==
[2023-04-15 11:03] VITALS: BMI 25.8
--- NOTE | 2023-04-15 11:03 | XRR_ITS ---
PROCEDURE INFORMATION: Exam: XR Right Hand Exam date and time: 04/15/2023 11:14 AM Age: 57 years old Clinical indication: Injury or trauma; Other: Laceration; Hand; Right TECHNIQUE: Imaging protocol: Radiologic exam of the right hand. Views: 3 or more views. COMPARISON: No relevant prior studies available. FINDINGS: Bones/joints: No acute fracture or dislocation. Joints are maintained. Soft tissues: Dorsal hand soft tissue swelling and irregularity. No retained metallic foreign body. Five and 3 mm nodular densities at the dorsal distal metacarpal level. Other findings: Bandage material overlies the phalanges and distal metacarpals. XR/XR hand RT min 3V* [id number] IMPRESSION: 1. Soft tissue swelling and injury without acute bony abnormality or retained metallic foreign body. 2. Couple small nodular densities at the dorsal distal metacarpal level may represent bandage material versus foreign bodies.
[2023-04-15 11:08] VITALS: BP 130/69; PULSE 64; RESP 16; TEMP 36.5; O2SAT 90
[2023-04-15 11:09] VITALS: O2SAT 92
[2023-04-15] MEDS: tetanus-dipt-pertussis 0.5 mL SDV IM (11:32)
[2023-04-15 11:34] LABS: Basophils # 0.1 10^3/uL (0.0-0.1); Basophils % 0.5 %; Eosinophils # 0.8 10^3/uL (0.0-0.8); Eosinophils % 6.5 %; Hematocrit 43.1 % (42.0-52.0); Hemoglobin 14.2 g/dL (11.7-16.6); Lymphocytes # 1.8 10^3/uL (0.8-4.8); Lymphocytes % 15.4 %; Mean Corpuscular HGB Conc 32.9 g/dL (30.0-36.0); Mean Corpuscular Hemoglobin 29.1 pg (28.0-34.0); Mean Corpuscular Volume 88.3 fl (80-94); Mean Platelet Volume 10.1 fL (7.4-10.4); Monocytes # 0.9 10^3/uL (0.2-0.9); Monocytes % 7.5 %; Neutrophils # 8.05 10^3/uL (1.8-7.7); Neutrophils % 69.8 %; Nucleated Red Blood Cells % 0 %; Platelet Count 307 10^3/cmm (130-400); Red Blood Count 4.88 10^6/uL (4.1-5.3); Red Cell Distribution Width 12.9 % (12.1-15.1); White Blood Count 11.5 10^3/uL (4.0-10.0)
[2023-04-15] MEDS: ondansetron 2 mg/ML SDV 2 mL 4 MG IVP (11:34)
[2023-04-15 11:37] VITALS: RESP 15
[2023-04-15] MEDS: morphine 4 mg/mL SDV 1 mL IVP (11:37)
--- NOTE | 2023-04-15 11:37 | XRR_ITS ---
PROCEDURE INFORMATION: Exam: XR Chest Exam date and time: 04/15/2023 12:17 PM Age: 57 years old Clinical indication: Cough and dyspnea; Prior surgery; Surgery date: 6+ months; Surgery type: Open heart; Additional info: Dyspnea/cough TECHNIQUE: Imaging protocol: Radiologic exam of the chest. Views: 1 view. COMPARISON: 1. CR XR chest 1V portable [id number] 02/21/2021 11:[address] chest con [id number] 11/08/2018 2:38 PM FINDINGS: Lungs: No consolidation. 8 mm nodular opacity projecting over the mid to lower right lung zone at the level of the posterior right 7th rib. Pleural spaces: Unremarkable. No pleural effusion. No pneumothorax. Heart/Mediastinum: No cardiomegaly. Heavy coronary artery calcification, possibly stent material, status post CABG. Bones/joints: Multiple median sternotomy wires. XR/XR chest 1V portable [id number] IMPRESSION: 1. No acute findings. 2. 8 mm nodular opacity projecting at the right mid to lower lung. Recommend CT, which may be on a nonemergent basis.
[2023-04-15] MEDS: ceFAZolin 1,000 MG in sodium chloride 0.9% (plus) 50 ML 100 MG IV (11:41)
--- NOTE | 2023-04-15 12:55 | ED_ITS ---
HPI - Wound/Laceration General: Chief Complaint: Wound/Laceration Stated Complaint: hand injury Time Seen by Provider: 04/15/23 11:03 Source: patient Mode of arrival: EMS History of Present Illness: 57-year-old male arrives by EMS with bleeding from a laceration between his second and third MP joints on the right hand. Yesterday a toolbox fell when he was moving a piece of furniture the tool box was perched on the furniture fell on the corner landed between the MP joints there is approximately 1 inch laceration is been oozing blood continuously since then. He gone to the local clinics to try to have something done with it and they should had him transferred here by EMS because of the continued bleeding. The pressure d ressing on when he arrives unsure of his last tetanus. He is on ticagrelor and aspirin. Onset (ago): day(s) Extremity Location: Right: hand Place: home Patient tetanus UTD: No Context: accidental Associated symptoms: Reports pain; Denies chills, fever(s), foreign body sensation, inability to move, numbness, syncope or other Treatments prior to arrival: bandage Review of Systems Const: Denies: fever(s) or chills Card: Denies: syncope Resp: Denies: dyspnea GI: Denies: abdominal pain Skin/Breast: Denies: rash or pruritus [facility] ED PFSH: Medical History Bipolar I disorder, moderate, current or most recent episode manic, with anxious distress CAD (coronary artery disease) Chronic post-traumatic stress disorder Dyslipidemia Generalized anxiety disorder Psychiatric care Surgical History S/P CABG (coronary artery bypass graft) Social History Smoking and tobacco status: former smoker Alcohol intake: never Substance/Drug Use: never Physical Exam Const: GENERAL APPEARANCE: cooperative and comfortable ORIENTATION/CONSCIOUSNESS: Yes awake, Yes oriented to person, Yes oriented to place and Yes oriented to time HENMT: COMMON NORMALS: normocephalic, atraumatic and hearing grossly normal bilaterally HEAD & SCALP: normocephalic and atraumatic Resp: COMMON NORMALS: normal respiratory effort, No retractions, No use of accessory muscles and clear to auscultation bilaterally AUSCULTATION: clear to auscultation bilaterally Cardio: COMMON NORMALS: regular rate, regular rhythm and No murmurs present (Cardio) RATE: regular rate RHYTHM: regular rhythm Extremity: OTHER: 1 inch laceration on the dorsum of the hand between the second and third MP joint. There is a small quarter inch laceration just proximal to this most of the bleeding is from the larger laceration. Neuro: SENSORIUM/ORIENTATION: Yes oriented to person, Yes oriented to place and Yes oriented to time Skin: COMMON NORMALS: no rashes or lesions noted GENERAL SKIN EXAM: no rashes or lesions noted Procedures Laceration Laceration 1: Site: hand Side (If applicable): right Size (cm): 2.5 Description: linear Depth: simple, single layer Local Anesthetic: lidocaine 1% Amount of anesthesia used (mL): 3 Pre-repair: irrigated extensively and deep structures intact Skin layer closed with: nylon Size (cm): 4-0 Number of sutures: 5 Technique: simple, interrupted Course Vital Signs: Vital signs: Vital Signs Temperature 97.7 F 04/15/23 11:08 Pulse Rate 64 04/15/23 11:08 Respiratory Rate 15 04/15/23 11:37 Blood Pressure 130/69 04/15/23 11:08 Pulse Oximetry 92 04/15/23 11:09 Oxygen Delivery Me thod Nasal Cannula 04/15/23 11:09 Oxygen Flow Rate 3 04/15/23 11:09 MDM - Wound/Laceration Medical Decision Making Direct pressure applied patient continues to have oozing. Area was anesthetized with lidocaine and approximated with 4 sutures a single suture was placed in the smaller more proximal laceration. Good hemostasis here sutures placed. Discharge patient home on Bactrim DS 1 p.o. twice daily. Given 7 days we also given a gram of Ancef here and updated his tetanus sutures out in 10 days apply topical antibiotic ointment to the wound return if there is any sign of infection. Patient is able to flex and extend before and after the sutures were placed. He has some limited on extension because of pain but can hold extension against resistance. Avoid use of right hand until sutures removed do not imm erse hand cleaning wound once to twice daily and apply topical antibiotic ointment. Medical Records I reviewed the patient's medical records. Lab Data I reviewed the patient's lab results. 04/15/23 11:20 Radiology Impressions Hand X-Ray 04/15/23 11:03 IMPRESSION: 1. Soft tissue swelling and injury without acute bony abnormality or retained metallic foreign body. 2. Couple small nodular densities at the dorsal distal metacarpal level may represent bandage material versus foreign bodies. Chest X-Ray 04/15/23 11:37 IMPRESSION: 1. No acute findings. 2. 8 mm nodular opacity projecting at the right mid to lower lung. Recommend CT, which may be on a nonemergent basis. Laboratory Results WBC 11.5 10^3/uL (4.0-10.0) H 04/15/23 11:20 RBC 4.88 10^6/uL (4.1-5.3) 04/15/23 11:20 Hgb 14.2 g/dL (11.7-16.6) 04/15/23 11:20 Hct 43.1 % (42.0-52.0) 04/15/23 11:20 MCV 88.3 fl (80-94) 04/15/23 11:20 MCH 29.1 pg (28.0-34.0) 04/15/23 11:20 MCHC 32.9 g/dL (30.0-36.0) 04/15/23 11:20 RDW 12.9 % (12.1-15.1) 04/15/23 11:20 Plt Count 307 10^3/cmm (130-400) 04/15/23 11:20 MPV 10.1 fL (7.4-10.4) 04/15/23 11:20 Neut % (Auto) 69.8 % 04/15/23 11:20 Lymph % (Auto) 15.4 % 04/15/23 11:20 Vigo % (Auto) 7.5 % 04/15/23 11:20 Eos % (Auto) 6.5 % 04/15/23 11:20 Baso % (Auto) 0.5 % 04/15/23 11:20 Neut # (Auto) 8.05 10^3/uL (1.8-7.7) H 04/15/23 11:20 Lymph # (Auto) 1.8 10^3/uL (0.8-4.8) 04/15/23 11:20 Vigo # (Auto) 0.9 10^3/uL (0.2-0.9) 04/15/23 11:20 Eos # (Auto) 0.8 10^3/uL (0.0-0.8) 04/15/23 11:20 Baso # (Auto) 0.1 10^3/uL (0.0-0.1) 04/15/23 11:20 Nucleated RBC % (auto) 0 % 04/15/23 11:20 Nucleated RBCs # 0.0 /100WBC 04/15/23 11:20 Discharge Plan Discharge Patient Disposition: Home Clinical Impression: Hand laceration Condition: Stable Prescriptions: New Bactrim DS 800-160 mg tablet 1 tab PO DAILY 7 Days Qty: 14 0RF mupirocin 2 % ointment 1 applic topical BID Qty: 15 0RF No Action diphenhydramine HCl [Benadryl Allergy] 25 mg tablet 25 mg PO BEDTIME PRN (Reason: allergy symptoms) nitroglycerin 0.4 mg tablet, sublingual 0.4 mg sublingual Q5M PRN (Reason: Chest Pain) 30 Days Qty: 30 6RF clonazepam 1 mg tablet 1 mg PO TID Qty: 90 3RF atorvastatin 80 mg tablet 80 mg PO BEDTIME Qty: 90 3RF bupropion HCl [Wellbutrin XL] 150 mg tablet extended release 24 hr 150 mg PO QAM Qty: 90 2RF buspirone 15 mg tablet 15 mg PO BID Qty: 180 2RF lamotrigine [Lamictal] 150 mg tablet 150 mg PO QAM Qty: 90 2RF ticagrelor 60 mg tablet 60 mg PO BID Qty: 180 3RF aspirin 81 mg tablet,chewable 81 mg PO QAM Discharge Orders: Discharge ED (Routine); Ordered 04/15/23 Ordered By: Lan Jeff Discharge Diet: Usual diet Discharge Activity: Limit activity as instructed Patient Instructions: Laceration (ED), Opioid Safety, Pain Management Activity Restrictions/Additional Instructions: Clean wound once a day and apply topical antibiotic ointment. Sutures to be removed in 10 days. 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
== END 2023-04-15 13:00 | disposition home or self-care (01) ==
PROVIDERS: Emergency Provider Family Medicine
DX: S61.411A Laceration without foreign body of right hand, initial encounter (principal); Z79.82 Long term (current) use of aspirin; I25.10 Atherosclerotic heart disease of native coronary artery without angina pectoris; E78.5 Hyperlipidemia, unspecified; Z95.1 Presence of aortocoronary bypass graft; Z87.891 Personal history of nicotine dependence; W20.8XXA Other cause of strike by thrown, projected or falling object, initial encounter; Z23 Encounter for immunization
CPT/HCPCS: 12001; 71045; 73130; 85025; 90471; 90715; 96374; 96375; 99284; J0690; J2270; J2405

== ENCOUNTER → 2023-08-07 14:37 | Outpatient (BNVA) | payer MEDICAID, SELFPAY | PROVIDERS: Visit Provider Internal Medicine Cardiovascular Disease | DX: E78.5 Hyperlipidemia, unspecified (principal); I25.10 Atherosclerotic heart disease of native coronary artery without angina pectoris; F43.12 Post-traumatic stress disorder, chronic; F31.12 Bipolar disorder, current episode manic without psychotic features, moderate; F41.1 Generalized anxiety disorder | CPT/HCPCS: 36415; 80053; 80061; 83721; 85025; 99214 ==

== ENCOUNTER → 2023-10-01 16:19 | Outpatient (BNVA) | payer MEDICAID, SELFPAY | PROVIDERS: Visit Provider Otolaryngology | DX: M95.0 Acquired deformity of nose (principal); J34.2 Deviated nasal septum; J34.89 Other specified disorders of nose and nasal sinuses; F43.12 Post-traumatic stress disorder, chronic; F41.1 Generalized anxiety disorder; F31.12 Bipolar disorder, current episode manic without psychotic features, moderate | CPT/HCPCS: 99205 ==

== ENCOUNTER 2023-10-29 05:39 | Day surgery (SDC) | payer MEDICAID, SELFPAY ==
[2023-10-29] VITALS (12 sets, daily range): BP systolic 141–162; BP diastolic 73–90; PULSE 63–80; RESP 12–21; TEMP 36.1–36.4; O2SAT 93–100; BMI 26.2
[2023-10-29] MEDS: sodium chloride 0.9% 1,000 ML 30 ML IV (06:17)
--- NOTE | 2023-10-29 06:47 | W.PM.OPSUD ---
Surgery/Procedure H&P Update DATE OF PROCEDURE: October 29, 2023 DATE H&P PERFORMED: 10/01/23 H&P UPDATE INFORMATION: I have reviewed H&P completed within last 30 days, I have examined patient prior to procedure and No changes to prior documentation CHANGES TO PREVIOUS DOCUMENTATION: No changes PREOP DIAGNOSIS: External nasal deformity/deviated nasal septum/nasal obstruction PRIMARY INDICATION FOR PROCEDURE: Deviated nasal septum with external nasal deformity and nasal obstruction PLANNED PROCEDURE: Operation Date: 10/29/23 07:35 Proposed Procedures p rhinoplasty with comcomitant septoplasty-08405 J34.89,J34.2,M95.0(Not Applicable) - Brad Mackey MD
--- NOTE | 2023-10-29 06:49 | ANES.PREANE2 ---
Pre-Anesthetic Assessment Height/Weight: Height 1.7 m Weight 75.75 kg Temp Pulse Resp BP Pulse Ox O2 Del Method 97.6 F 65 18 141/79 93 Room Air 10/29/23 06:09 10/29/23 06:09 10/29/23 06:09 10/29/23 06:09 10/29/23 06:09 10/29/23 06:09 Preop Diagnosis: External nasal deformity/deviated nasal septum/nasal obstruction Operation Date: 10/29/23 07:35 Proposed Procedures p rhinoplasty with comcomitant septoplasty-72761 J34.89,J34.2,M95.0(Not Applicable) - Brad Mackey MD Last intake: Intake Last Liquid Date 10/28/23 Last Liquid Time 19:30 Last Solid Date 10/28/23 Last Solid Time 17:30 Exam alert, oriented x 3, clear to auscultation bilaterally and regular rate & rhythm Airway Submandibular: within normal limits Cervical ROM: within normal limits Mallampati: Class I Pulmonary None reported Anesthetic Plan ASA status: 2 Anesthesia: General Medications/Allergies Home Medications Medication Instructions Recorded Confirmed Last Taken Type diphenhydramine HCl 25 mg tablet 25 mg PO BEDTIME PRN allergy 06/09/20 10/29/23 Unknown History (Benadryl Allergy) symptoms aspirin 81 mg chewable tablet 81 mg PO QAM 04/15/23 10/29/23 04/15/23 History mupirocin 2 % topical ointment 1 applic topical BID #15 grams 04/15/23 10/29/23 Unknown Rx bupropion HCl 150 mg 24 hr tablet, 150 mg PO QAM #90 tabs 07/03/23 10/29/23 10/28/23 Rx extended release (Wellbutrin XL) lamotrigine 150 mg tablet 150 mg PO QAM #90 tabs 07/03/23 10/29/23 10/28/23 Rx (Lamictal) atorvastatin 80 mg tablet 80 mg PO BEDTIME #90 tabs 08/07/23 10/29/23 Unknown Rx nitroglycerin 0.4 mg sublingual 0.4 mg sublingual Q5M PRN Chest 08/07/23 10/29/23 Unknown Rx tablet Pain 30 days #30 tabs ticagrelor 60 mg tablet 60 mg PO BID #180 tabs 08/07/23 10/29/23 Unknown Rx clonazepam 1 mg tablet 1 mg PO TID #90 tabs 08/21/23 10/29/23 10/28/23 Rx buspirone 15 mg tablet 15 mg PO DIRECTED #180 tabs 09/23/23 10/29/23 10/28/23 Rx Allergies Allergy/AdvReac Type Severity Reaction Status Date / Time No Known Allergies Allergy Verified 10/29/23 06:02 Current Medications Generic Name Dose Route Start Last Admin Trade Name Freq PRN Reason Stop Dose Admin Sodium Chloride 1,000 mls @ 30 mls/hr 10/29/23 06:00 10/29/23 06:17 Sodium Chloride 0.9% IV 10/30/23 05:59 30 mls/hr .Q24H TRACY Administration PFSH Anesthesia Medical History Psychiatric care Dyslipidemia CAD (coronary artery disease) Generalized anxiety disorder Chronic post-traumatic stress disorder Bipolar I disorder, moderate, current or most recent episode manic, with anxious distress Surgical History S/P CABG (coronary artery bypass graft) Social History Smoking and tobacco/nicotine status: former use of tobacco/nicotine Alcohol intake: never Substance/Drug Use: never Data Anesthesia Cardiac Studies: Echocardiogram Ultrasound 02/21/21
--- NOTE | 2023-10-29 06:51 | ANE.PACU2 ---
Inpatient post-anesthesia follow up: Vital signs: Temperature 97.6 F Pulse Rate 65 Respiratory Rate 18 Blood Pressure 141/79 Pulse Oximetry 93 Oxygen Delivery Me thod Room Air Oxygen Flow Rate Fraction of Inspir ed Oxygen Additional Comments: no complications noted
[2023-10-29] MEDS: ceFAZolin 2,000 MG in sodium chloride 0.9% (plus) 50 ML 100 MG IV (08:10)
[2023-10-29] MEDS: lidocaine-epi 2% 1.7mL Cartridge (OR Only) 6.79999999999999982 ML XX (08:43)
[2023-10-29] MEDS: oxymetazoline 0.05% Nasal Spray 15 mL 1 SPRAY NOSTRIL-B (08:44)
[2023-10-29] MEDS: neomycin-poly-bacitracin oint 28 gm 1 APPLIC TOPICAL (08:54)
--- NOTE | 2023-10-29 09:03 | P.OP_ITS ---
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 Procedure done: Rhinoplasty with concomitant septoplasty Implants: 2 septal splints and 2 Telfa packs Specimens removed/disposition: No specimen for pathology Surgeon: Brad Mackey MD Anesthesia: General and Local Estimated blood loss: 15 mL Complications: No complications encountered Findings: Deviated nasal septum in the cartilaginous portion with deflection of the septum convexly into the left side out of the columellar and into the nares. Significantly deformed nares as a result. Nasal obstruction left side 100% as a result. Brief History: 58-year-old male patient with a history of nasal trauma fracturing his nose many years ago. He has had progressive nasal dyspnea since. On exam he was found to have an external deformity of the cartilaginous portion of the dorsum and the septum deflected severely to the left side out of the columellar midline over to the left side and deforming the left nares as well. Resultant nasal obstruction on the left side 100%. Significantly narrowed valve as a result. Patient is coming to the operating room at this time to undergo rhinoplasty of the cartilaginous portion of the nose especially in the columellar area and nares area and septoplasty. The procedure its risks and complications were explained in detail. These risks included bleeding and infection and numbness and scarring and swelling and bruising and septal hematoma and or abscess as well as change in sense of smell and nasal dryness and recurrent problems and need for additional treatment. With these things understood and knowing that there is anesthetic risk such as heart attack or stroke or not surviving the surgery, the patient gave consent and this was witnessed. Procedure: Description of procedure: The patient was placed on the operating table in the supine position. Adequate general anesthesia was obtained. He received Ancef IV for prophylaxis. He was placed into a semirecumbent position. His nose was packed with 6 cottonoids soaked in 12-hour Afrin. Nasal hairs were trimmed with scissors. Afrin packs were removed and the septum and external nose were infiltrated with local utilizing a total of 6.8 mL of 2% Xylocaine with 1- 100,000 epinephrine. The Afrin packs were reapplied to the nose and the patient was prepped and draped in usual fashion. Timeout was accomplished identifying the patient date of plan procedure allergies fire risk and medications given. With all in agreement the procedure continued. The Afrin packs were removed from the nose. The nose was inspected. A [place] elevator was used to outfracture the inferior turbinates. It was elected to go on the concave side of the septal deformity on the right side. A hemitransfixion incision was created with a 15 blade carrying it down to the level of the septal cartilage. Then a mucoperichondrial periosteal flap was raised on the right side. This was done in all directions. Then careful dissection around the distal aspect of the cartilage and the columellar area was accomplished. There was definitely multiple fracture segments. Once this was freed for about 1 cm on the left side the maxillary crest was fractured back into a midline position. Excess length superior to inferior was removed with a half round knife inferiorly. A drain hole was accomplished to prevent hematoma formation on the right side. The distal aspect of the septum was trimmed by about 1 to 2 mm so it would rest in the columellar area properly. With this accomplished the septum now rested in the good midline position. The columellar area was adjusted and placed in the proper position. There was a through and through suture of 3-0 Prolene placed to hold the lower lateral cartilages medially and the medial crura . Once this was accomplished the columellar looked much more symmetrical. The external nose on the dorsum was much straighter. It was not necessary to do any bone fracturing. Segments of the posterior portion of the quadrangular cartilage at his junction with the perpendicular plate of the ethmoid and vomer were trimmed. This was done inferiorly to superiorly. A segment of cartilage was removed and trimmed and placed back into the posterior pocket. With this accomplished the septum now rested in a good straight midline position anterior to posterior. A [place] elevator was able to be passed through both nasal chamber to the nasopharynx without obstruction. The right hemitransfixion incision was closed loosely with interrupted 4-0 chromic suture. A septal splint coated with Neosporin was applied each side of the septum. These were sutured in a through and through fashion with 3-0 Prolene. Then 2 Telfa packs were cut to size coated with Neosporin and 1 was applied each side of the nose. This was extended anterior to posterior. The face was cleansed. A drip pad was applied to the end of the patient's nose. The throat was suctioned clean. Patient was then returned to anesthesia for wake-up and extubation. Patient tolerated the procedure well had an estimated blood loss of 15 mL and arrived in recovery in stable condition.
[2023-10-29] MEDS: fentaNYL 50 mcg/mL INJ 2mL IVP (09:27)
[2023-10-29] MEDS: HYDROmorphone 1 mg/mL INJ 1 mL 0.5 MG IVP (10:02)
[2023-10-29] MEDS: HYDROcodone-acetaminophen 5-325 mg Tablet 1 TAB PO (10:32)
--- NOTE | 2023-10-29 15:40 | ANE.PACU2 ---
Inpatient post-anesthesia follow up: Vital signs: Temperature 97.1 F Pulse Rate 63 Respiratory Rate 17 Blood Pressure 161/87 Pulse Oximetry 99 Oxygen Delivery Me thod Room Air Oxygen Flow Rate 8 Fraction of Inspir ed Oxygen Additional Comments: no apparent anesthetic complications noted
== END 2023-10-29 10:47 | disposition home or self-care (01) ==
PROVIDERS: Visit Provider Otolaryngology
PROC: (CPT 30420; principal; 2023-10-29 07:25)
DX: J34.2 Deviated nasal septum (principal); M95.0 Acquired deformity of nose; J34.89 Other specified disorders of nose and nasal sinuses; F43.12 Post-traumatic stress disorder, chronic; F31.12 Bipolar disorder, current episode manic without psychotic features, moderate; Z79.82 Long term (current) use of aspirin; E78.5 Hyperlipidemia, unspecified; I25.10 Atherosclerotic heart disease of native coronary artery without angina pectoris; F41.9 Anxiety disorder, unspecified; Z95.1 Presence of aortocoronary bypass graft; Z87.891 Personal history of nicotine dependence
CPT/HCPCS: 30420; J0330; J0690; J1100; J1170; J2250; J2405; J2704; J2710; J3010; J3490; J7030

== ENCOUNTER → 2023-11-06 13:10 | Outpatient (BNVA) | payer MEDICAID, SELFPAY | PROVIDERS: Visit Provider Otolaryngology | DX: Z48.810 Encounter for surgical aftercare following surgery on the sense organs (principal); J34.89 Other specified disorders of nose and nasal sinuses; M95.0 Acquired deformity of nose; J34.2 Deviated nasal septum | CPT/HCPCS: 99024 ==

== ENCOUNTER → 2023-11-21 13:57 | Outpatient (BNVA) | payer MEDICAID, SELFPAY | PROVIDERS: Visit Provider Otolaryngology | DX: Z48.810 Encounter for surgical aftercare following surgery on the sense organs (principal) | CPT/HCPCS: 99024 ==

== ENCOUNTER → 2024-01-23 10:13 | Outpatient (BNVA) | payer MEDICAID, SELFPAY | PROVIDERS: Visit Provider Otolaryngology | DX: Z48.810 Encounter for surgical aftercare following surgery on the sense organs (principal) | CPT/HCPCS: 99024 ==

== ENCOUNTER → 2024-02-19 09:11 | Outpatient (BNVA) | payer MEDICAID, SELFPAY | PROVIDERS: Visit Provider Nurse Practitioner Family | DX: I25.119 Atherosclerotic heart disease of native coronary artery with unspecified angina pectoris (principal); E78.5 Hyperlipidemia, unspecified; Z87.891 Personal history of nicotine dependence | CPT/HCPCS: 36415; 80061; 99214 ==

== ENCOUNTER → 2025-08-17 13:00 | Outpatient (BNVA) | payer MEDICAID, SELFPAY | PROVIDERS: Visit Provider Internal Medicine | DX: I25.119 Atherosclerotic heart disease of native coronary artery with unspecified angina pectoris (principal); E78.5 Hyperlipidemia, unspecified; Z87.891 Personal history of nicotine dependence | CPT/HCPCS: 99214 ==